=== PATIENT | female | born 1955 | race Caucasian/White ===

== ENCOUNTER 2020-10-20 12:34 | Outpatient (REF) | payer MEDICARE, SELFPAY ==
[2020-10-20 13:43] LABS: Anion Gap 14 (12-20); Carbon Dioxide 29 mmol/L (22-29); Chloride 103 mmol/L (96-108); Potassium 5.1 mmol/L (3.3-5.1); Sodium 141 mmol/L (135-145)
[2020-10-20 13:55] LABS: Valproate 43.7 mcg/mL (50.0-100.0)
== END 2020-10-20 12:35 | disposition home or self-care (01) ==
LOC: HO.LAB 12:34
PROVIDERS: PCP Family Medicine; Visit Provider Psychiatry & Neurology Neurology
DX: G40.909 Epilepsy, unspecified, not intractable, without status epilepticus (principal)
CPT/HCPCS: 36415; 80051; 80164

== ENCOUNTER 2022-04-26 11:17 | Outpatient (REF) | payer MEDICARE, SELFPAY ==
[2022-04-26 13:05] LABS: Valproate 88.1 mcg/mL (50.0-100.0)
[2022-04-26 14:18] LABS: Anion Gap 4 (12-20); Carbon Dioxide 39 mmol/L (22-29); Chloride 100 mmol/L (96-108); Potassium 4.8 mmol/L (3.3-5.1); Sodium 138 mmol/L (135-145)
== END 2022-04-26 11:18 | disposition home or self-care (01) ==
LOC: HO.LAB 11:17
PROVIDERS: Visit Provider Psychiatry & Neurology Neurology
DX: G40.909 Epilepsy, unspecified, not intractable, without status epilepticus (principal)
CPT/HCPCS: 36415; 80051; 80164

== ENCOUNTER 2023-11-07 12:24 | Outpatient (REF) | payer MEDICARE, SELFPAY ==
[2023-11-07 13:15] LABS: Anion Gap 10 (12-20); Carbon Dioxide 32 mmol/L (22-29); Chloride 103 mmol/L (96-108); Potassium 4.4 mmol/L (3.3-5.1); Sodium 141 mmol/L (135-145); Valproate 85.4 mcg/mL (50.0-100.0)
== END 2023-11-07 12:25 | disposition home or self-care (01) ==
LOC: HO.LAB 12:24
PROVIDERS: PCP Family Medicine; Visit Provider Psychiatry & Neurology Neurology
DX: E87.1 Hypo-osmolality and hyponatremia (principal); G40.909 Epilepsy, unspecified, not intractable, without status epilepticus
CPT/HCPCS: 36415; 80051; 80164

== ENCOUNTER 2024-11-12 10:50 | Outpatient (AMB) | payer MEDICARE, SELFPAY ==
--- NOTE | 2024-11-12 10:56 | A.OFFVIS_ITS ---
Intake Visit Reasons: 1 Year follow up Accompanied by: Spouse Allergies NSAIDS (Non-Steroidal Anti-Inflamma Allergy (Unknown, Verified 11/12/24 11:00) Unknown Penicillins Allergy (Unknown, Verified 11/12/24 11:00) Unknown vaccine adjuvant system, AS01B lipo (From Shingrix (PF)) Allergy (Unknown, Ve rified 11/12/24 11:00) Unknown varicella-zoster virus glycoprotein (From Shingrix (PF)) Allergy (Unknown, Verified 11/12/24 11:00) Unknown Medication List - Last Reconciled 11/12/24 by Leyla Coyle CNP calcium carbonate-vitamin D3 250 mg-3.125 mcg (125 unit) 1 tab PO DAILY cyanocobalamin (vitamin B-12) (Vitamin B-12) 1,000 mcg PO DAILY divalproex (Depakote) 500 mg PO BID ergocalciferol (vitamin D2) (Vitamin D2) 1,250 mcg PO QWEEK insulin lispro 50 units subcut DAILY levothyroxine 88 mcg PO QAM pregabalin 50 mg PO BID HPI Comments Details: She has been stable with Depakote 500mg twice a day. No seizure recurrence since 04/2012. No dizziness. No signficant tremors. Walking with walker outside of home and using cane or walker at home, few minor falls. No change in left foot drop. Using AFO brace most of the time, but forgot it today. Pregabalin helping with pain. Tried a SC stimulator in the past, but it did not help. She had some forgetfulness and had MRI done at [facility] which apparently showed some shrinkage. She also apparently had some neuropsych testing done in [place] and had appointment later this month. She has a long history of seizure disorder with partial seizures and secondary generalization. She had cervical discectomy and implant in 02/2023 and another lumbar disc surgery in 03/2023. No problems with tremors any more. Type 1 diabetes on insulin pump. Has thyroid problems. In the past she has had problems with mental status changes, mood changes, and was toxic on Depakote with a level of 179 that was slowly brought down. She is now on 500 mg Depakote twice a day. Had lumbar discectomy at L5-S1 by Dr. Humphreys on 07/13/2017 and has a left foot drop. 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 She had also had it before and needed L4-5 discectomy at [facility] in 04/2012. [facility] Medical History (Updated 11/12/24 @ 11:18 by Leyla Coyle CNP) Hyponatremia Tremor, unspecified Seizure disorder Radiculopathy, lumbar region Review of Systems Const Denies chills, Denies daytime sleepiness, Denies difficulty sleeping, Denies fatigue, Denies fever(s), Denies frequent falls, Denies headache(s), Denies increased appetite, Denies poor appetite, Denies snoring, Denies weakness, Denies weight gain and Denies weight loss Eyes Denies loss of vision ENT Denies vertigo, Denies dizziness, Denies headache(s) and Denies neck pain Card Denies chest pain at rest, Denies chest pain with activity, Denies syncope, Denies leg edema, Denies palpitations, Denies dyspnea and Denies dyspnea on exertion Resp Denies cough, Denies dyspnea, Denies dyspnea on exertion and Denies snoring GI Denies abdominal pain, Denies constipation, Denies heartburn, Denies diarrhea and Denies nausea Denies urinary frequency, Denies urinary incontinence and Denies urinary urgency Musc Denies abnormal gait, Reports back pain, Denies myalgias, Denies arthralgias, Denies neck pain, Denies numbness and Denies tingling Neuro Denies abnormal gait, Denies vertigo, Denies dizziness, Denies syncope, Denies frequent falls, Denies headache(s), Denies lack of coordination, Denies loss of vision, Denies memory loss, Denies numbness, Denies Other visual disturbances, Denies restless legs, Denies seizure-like activity, Denies tingling, Denies paresthesias, Denies tremor(s) and Denies weakness Psych Denies anxiety, Denies depression, Denies auditory hallucinations, Denies memory loss and Denies visual hallucinations Endo Denies fatigue and Denies palpitations Physical Exam Const Other: General Appearance:? normal, in no acute distress. Heart:? S1, S2 normal, no murmurs. Lungs:? clear anteriorly and posteriorly. Musculoskeletal:? normal. Extremities:? no edema. Psych:? alert, oriented, cognitive function intact, cooperative with exam. Neuro Other: Abnormal Neurological Findings:?Walking with walker. Left foot drop with weak TA and evertors of ankle. Mental Status: alert and oriented X 3. Normal attention, orientation, memory, and affect. Cranial Nerves: Pupils are equal, round, and reactive to light. External ocular muscles are intact. Visual adan are full, no ptosis. Face is symmetrical, no facial weakness or droop. Facial sensations are normal. Tongue protrudes in midline. Palate elevates symmetrically. Shoulder shrugging is normal Motor Examination: As above. DTR 2+, 1+ AJs. Plantars are flexor. Sensory Exam: Normal light touch, temperature, pinprick, vibration, and joint- position sensations. Rhomberg sign is absent. Coordination: No ataxia. No titubation. [id number], [id number] test, and rapid alternating movements were normal. Gait Exam: With walker. Cerebellar Signs: [id number] is okay. Extrapyramidal System: No tremor, rigidity with normal facial expressions. No bradykinesia. No bradyphrenia. Normal arm swing and posture. No propulsion or retropulsion. Speech: Normal. Results Reviewed Results Reviewed: Laboratory Tests 11/07/23 12:35 Sodium 141 Potassium 4.4 Chloride 103 Carbon Dioxide 32 H Anion Gap 10 L Valproic Acid 85.4 Assessment & Plan Assessment & Plan (1) Seizure disorder: Code(s): G40.909 - Epilepsy, unspecified, not intractable, without status epilepticus Category: Medical Plan: Continue Depakote 500mg 1 tablet twice a day. Valproate level ordered. Lab results from last appointment reviewed. (2) Tremor, unspecified: Code(s): R25.1 - Tremor, unspecified Category: Medical Plan: No tremor noted on exam. (3) Radiculopathy, lumbar region: Code(s): M54.16 - Radiculopathy, lumbar region Category: Medical Plan: . (4) MCI (mild cognitive impairment): Code(s): G31.84 - Mild cognitive impairment of uncertain or unknown etiology Category: Medical Plan: Will request MRI report from [facility]. She will ask for copy of neuropsych testing report to be sent to the office. Stay physically and socially active, use walker and AFO brace. Orders: Orders Valproate Today G40.909 - Epilepsy, unspecified, not intractable, without status epilepticus Coding Level of Care Code Est Pt Level 4 (32215) Diagnoses Seizure disorder G40.909 Tremor, unspecified R25.1 Radiculopathy, lumbar region M54.16 MCI (mild cognitive impairment) G31.84
--- OUTSIDE RECORDS SUMMARY | 2024-11-12 11:36 | XMS_ITS | Clinical Summary ---
Author Organization [facility] Address [address] [place] [address] [place] [id number] Phone Care Team Providers Care Animal Shelter Clerk Name Role Phone Reina Price RN Unavailable [phone] Bryce Plunkett MD Unavailable Bryce Plunkett MD Primary Care Provider [phone] Allergies Active Allergy Reactions Criticality Noted Date Comments Insulin Detemir Other (See Comments) Medium 03/03/2017 Skin reaction Msg Angioedema High 06/08/2017 Insulin Aspart Other (See Comments) Medium 03/03/2017 Skin reaction Nsaids (Non-Steroidal Anti-Inflammatory Drug) Hives Medium 03/03/2017 Penicillins Hives Medium 03/03/2017 Shellfish Containing Products Hives 02/05/2024 Other Reaction(s): CLAMS AND MSG- REACTION NOT LISTED Medications divalproex (DEPAKOTE ER) 500 MG ER 24 hr tablet Take 500 mg by mouth 2 (two) times a day. Active acetaminophen (TYLENOL) 325 mg tablet Take 2 tablets (650 mg total) by mouth every 6 (six) hours as needed for mild pain or fever. 0 05/22/19 19 Active BASAGLAR KWIKPEN U-100 INSULIN 100 unit/mL (3 mL) InPn injection penIndications:Ty pe 1 diabetes mellitus without complication Inject 18 Units under the skin daily. E10.9 15 mL 1 04/19/19 24 Active BD ULTRA-FINE JIMI PEN NEEDLE 32 gauge x 5/32 NdleIndications:T ype 1 diabetes mellitus without complication 1 each by Miscellaneous route as needed. E10.9 30 each 1 04/19/19 24 Active OMNIPOD DASH INTRO KIT, GEN 4, CrtgIndications:T ype 1 diabetes mellitus without complication Used to start initiation for Omnipod dash PODS 1 each 05/26/19 24 Active GVOKE HYPOPEN 2-PACK 1 mg/0.2 mL subcutaneous auto-injectorIndi cations:Type 1 diabetes mellitus without complication INJECT 0.2 ML (1MG) UNDER THE SKIN ONCE NEEDED FOR SEVERE HYPOGLYCEMIA CASES 0.4 mL 3 07/26/19 24 Active blood-glucose meter kitIndications:Ty pe 1 diabetes mellitus without complication,Insu john pump in place FREESTYLE METER KIT for use with Freestyle test strips. Use as instructed to monitor blood sugars 1-2 times daily. E10.9 1 each 08/02/19 24 Active EPINEPHrine 0.3 mg/0.3 mL auto-injectorIndi cations:Medicatio n refill INJECT INTRAMUSCULARLY ONCE NEEDED 2 each 1 08/08/19 24 Active OMNIPOD DASH PODS, GEN 4, CrtgIndications:T ype 1 diabetes mellitus without complication USE 1 DIRECTED UNDER THE SKIN EVERY OTHER DAY. 45 each 3 12/25/19 24 Active DEXCOM G6 SENSOR DeviIndications:T ype 1 diabetes mellitus without complication 1 each by Miscellaneous route Every 10 Days. 9 each 3 12/26/19 24 Active calcium carbonate-vitamin D3 625 mg (250 elemental)-125 units TabIndications:Ty pe 1 diabetes mellitus without complication Take 1 tablet by mouth daily. 90 tablet 3 03/21/20 24 Active insulin syringe-needle U-100 0.3 mL 31 gauge x 15/64 SyrgIndications:T ype 1 diabetes mellitus without complication 1 each by Miscellaneous route 3 (three) times a day before meals. For use with meal time insulin in case of insulin pump failure E10.9 100 each 3 03/30/20 24 Active CONTOUR NEXT Strp stripsIndications :Type 1 diabetes mellitus without complication,Insu john pump in place Monitor blood sugars as directed up to 6 times daily DX:E10.9 600 strip 1 04/07/20 24 Active levothyroxine (SYNTHROID, LEVOTHROID) 88 MCG tabletIndications :Acquired hypothyroidism Take 1 tablet (88 mcg total) by mouth every morning. 90 tablet 3 04/26/19 25 Active capsaicin (ZOSTRIX-HP) 0.075 % topical cream Apply topically 3 (three) times a day. 57 g 1 08/31/19 25 Active insulin lispro (HUMALOG U-100 INSULIN) 100 unit/mL injection vialIndications:T ype 1 diabetes mellitus with hyperglycemia INJECT 50 UNITS SUBCUTANEOUSLY DAILY VIA PUMP 50 mL 3 10/19/19 25 Active ergocalciferol (DRISDOL) 50,000 unit capsuleIndication s:Vitamin D deficiency Take 1 capsule (50,000 Units total) by mouth once a week. 12 capsule 10/26/19 25 Active pregabalin (LYRICA) 50 MG capsuleIndication s:Diabetic mononeuropathy associated with type 2 diabetes mellitus Take 1 capsule (50 mg total) by mouth 2 (two) times a day. 56 capsule 5 11/01/19 25 Active cyanocobalamin, vitamin B-12, (VITAMIN B-12) 1000 MCG tabletIndications :Vitamin B12 deficiency Take 1 tablet (1,000 mcg total) by mouth daily. 30 tablet 5 11/01/19 25 Active insulin lispro (HUMALOG U-100 INSULIN) 100 unit/mL injection vialIndications:T ype 1 diabetes mellitus with hyperglycemia INJECT 50 UNITS SUBCUTANEOUSLY DAILY VIA PUMP 50 mL 3 10/03/19 24 2024 Disconti nued(Reo rder) pregabalin (LYRICA) 25 MG capsuleIndication s:Diabetic mononeuropathy associated with type 2 diabetes mellitus Take 1 capsule (25 mg total) by mouth 2 (two) times a day. 56 capsule 2 09/20/19 25 2024 Disconti nued(Reo rder) Active Problems Patient Care Coordination No te Formatting of this note migh t be different from the original. Patient is high risk for these reasons: Multiple chronic conditions Living Situation: Lives with spouse in one story home, 4 steps to enter Functional Status (ADL's/iADLs): Independent with ADL's, some assistance with iADL's Family/Social Supports: Family Goals of Care (HCP/Molst): HCP on file Community Supports (e.g. VNA, DME Vendors, Elder Services): N/A Transportation: drives self locally, spouse drives longer distance Medication Management System/Specialized Pharmacy Needs: Delivered by mail, self managed Financial Concerns: N/A Other Supports and Care Needs: N/A Problem Noted Date Diagnosed Date Vitamin D deficiency 10/25/2024 Assessment & Plan (10/25/2024 10:06 AM EDT): She takes vitamin D 5000 units daily and she states that she prepares her own pills and takes this medication without fail. Yet her vitamin D level was low at 22 ng/mL so I would think that she probably has some type of absorption issue. I will prescribe ergocalciferol 50,000 units weekly currently she is taking 35,000 units weekly. I asked her to stop the 5000 units and take 50,000 ergocalciferol weekly and repeat vitamin D levels in 3 months time. 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 But based on her CTX this is not elevated so surprising to me. In any case vitamin B6 and B12 could be deficient in homocystinemia so I will check these levels. Other osteoporosis without current pathological fracture 07/03/2024 Assessment & Plan (10/25/2024 10:15 AM EDT): On biochemical workup I found that she is vitamin D deficient despite taking high doses of vitamin D 5000 units daily. This will be 35,000 units a week so she is really taking this then is possibly a malabsorption issue because vitamin D levels are still low. If vitamin D levels are low she cannot absorb calcium properly which is required for bone buildup. Furthermore 24 urine calcium output was low but I think because of incontinence this is not an accurate collection. The calcium carbonate that she takes only gives her 250 mg of elemental calcium. I told her to take calcium citrate and I recommended the brand Citracal max which is 2 tablets for 650 mg and she probably should take this in divided doses unless she is forgetful in which case she should take both at the same time. However I explained that taking calcium in divided doses with food is best for absorption. We also found that she has homocystinemia which can also result in progression of osteoporosis. Interestingly though the CTX was not elevated in the procollagen was on the low side of normal as if she will build in bone. She is past due for repeat DXA scan and I requested DXA scan studies and asked the patient's to call radiology to schedule this because they are 1 year behind. At this point if she is not getting adequate calcium intake and vitamin D there is no point in prescribing an antiresorptive medication because the medication will not work so we need to bring up the vitamin D and calcium intake before we prescribe antiresorptive medications. She would definitely benefit from antiresorptive medication because she is at high risk of hip fracture based on the FRAX score. Today I reviewed antiresorptive medications which I think she will benefit from alendronate, zoledronic acid or denosumab. I explained how these medications are taken. I will also give other information to read again today. However again I am not prescribing this medication because is not going to be beneficial onto her vitamin D levels are in the normal reference range and she is taking adequate calcium intake. She will return for follow-up in 3 months time. Assessment & Plan (07/03/2024 12:10 PM EDT): This is a patient that was diagnosed with osteoporosis on 2020 possibly earlier but I do not have the initial DXA scans. Her risk factors for osteoporosis include age, menopause, use of antiepileptic medications, use of corticosteroids on 2 occasions, remote tobacco use. She has had 2 inches decrease in height no fractures. Presently is taking calcium and vitamin D supplements. At this point I will do biochemical workup for evaluation of secondary causes of osteoporosis. I will provide the patient with information on osteoporosis management and medications that she can use. Based on guidelines she is at very high risk of osteoporotic fracture and would benefit from antiresorptive medications to increase bone mineral density. I will not be prescribing any medications today she should read over the information and decide which medication she wants to use. I have done a brief explanation of these medications. Cervical radiculopathy 03/20/2023 Assessment & Plan (03/23/2023 12:19 AM EST): Patient continues to have pain in the left shoulder which is radiating down to her elbow and fingers. She is already tried physical therapy and the gabapentin is not providing her relief. I will order an MRI of the cervical spine to look for underlying cause of the symptoms. Delirium 02/23/2023 Assessment & Plan (02/27/2023 9:29 AM EST): Confusion resolved. Etiology of patient's confusion seemed most likely attributed to her gabapentin increase to 600 mg 3 times daily, several weeks prior to arrival, as this correlated with her change in mental status. Hyperglycemic on arrival, not in DKA, no hypoglycemia. IV fluid resuscitation initiated in the ED. Urinalysis appeared noninfectious, despite imaging findings. Chest x-ray did not reveal any acute pathology. Toxicology screen, alcohol negative. She was diagnosed with a T12 compression fracture on imaging in the ED, with narcotics given for pain management cautiously in the setting of underlying delirium. 02/27: -At the time of admission gabapentin dose was reduced to 200 mg twice daily. -Healthcare proxy is invoked. Will reassess need today. Mental status now clear. -Pain management: Continuing to minimize opioids as tolerated, ensuring adequate pain control. Tylenol is scheduled with lidocaine patch. -Dealing with constipation, secondary to opioids, bowel regimen increased 02/26. MiraLAX scheduled twice daily, Colace twice daily, senna nightly, Dulcolax suppository daily if no response to oral medications. -IV fluids restarted today while n.p.o. -Antiemetics available if needed -Low suspicion for infection, UA reassuring, white blood cell count normalized, no fevers. Lactate blood increase 02/23/2023 Assessment & Plan (02/26/2023 9:10 AM EST): On arrival patient had elevated lactate at 3, trending down to 2.35 with rehydration. Initially with a mild leukocytosis of 11, low-grade temp of 99.4 which has since normalized. Currently has no signs of infection, CT mentions possible enteritis and she does complain of some mild abdominal pain though nontender on exam and reports she has not reported this prior, no episodes of diarrhea. Elevated lactate likely secondary to dehydration given hyperglycemia leading to diuresis, likely insufficient amount of insulin prior to arrival as well, leading to anabolic metabolism and elevated lactate. Abdominal pain is likely secondary to elevated glucose levels, now resolved. No diarrhea. Cervical spinal stenosis 02/23/2023 Assessment & Plan (02/23/2023 5:14 PM EST): Patient has had ongoing neck, shoulder, left arm pain for which she followed up with her PCP who had MRI performed on 02/19 which showed multilevel neuroforaminal narrowing, fairly severe C5-C6 on the right and C6-C7 on the left. Mild central canal stenosis at C5-C6. Moderate to severe degenerative disc and endplate changes at C5-C6 and C6-C7. Sensation, strength intact not requiring any emergent intervention. -Follow-up with Dr. Ramirez of [facility] who PCP is referring to for steroid injections or surgical intervention -Continue with gabapentin, at reduced dose -Lidocaine patch to shoulder Snoring 08/30/2022 Assessment & Plan (08/30/2022 11:37 AM EDT): Referral has been placed to ENT to work-up possible causes of snoring. Patient does not have congestion on physical exam and there is no discharge from nose seen. Pain in joint of left shoulder 08/30/2022 Assessment & Plan (12/26/2022 1:45 AM EDT): Patient continues to go to physical therapy and is noticing an improvement in her overall symptoms. She recently went on a camping trip and was able to do more as compared to her last visit in August Assessment & Plan (08/30/2022 11:38 AM EDT): I advised the patient to start physical therapy for her pain management back and left shoulder as it appears to be a muscular issue. She is living in [place] and would like to go to the [facility] physical therapist located at [place]. Change in color of skin mole 08/30/2022 Assessment & Plan (08/30/2022 11:38 AM EDT): I have placed a referral for patient to follow-up with dermatology to get the suspicious lesion biopsied over the left side of her chest. Seborrheic keratoses 06/23/2021 Assessment & Plan (06/23/2021 2:04 PM EDT): Endy has numerous lesions and she is reassured. No specific treatment needed at this point. 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 Referral to physical therapy. Assessment & Plan (02/24/2021 1:57 PM EST): Endy is having both biceps tendinitis as well as triceps tendinitis. Is been going on for at least a couple of months. We did review options. She does not tolerate NSAIDs but is using acetaminophen. Steroids would likely worsen her sugar. Time I think will help and physical therapy as an option. Right now she is managing. Type 1 diabetes mellitus with hyperglycemia 04/10 Assessment & Plan (08/05/2024 1:16 PM EDT): Endy has been doing well in general, continues to take insulin doses prior to eating consistently, these however have not been effective early in the day, there has overall been more variability in her patterns and with this more alerts for highs and lows We reviewed alert settings today which are appropriate We reviewed CGM data which indicates high CV indicating wider variability than in the past We discussed optimizing I:C ratio for breakfast/lunch and also reducing basal rate, which is quite high, during the day; these changes will hopefully bring about some balance in glucose patterns and reduce alerts above/below goal We had a lengthy discussion regarding steroid therapy and the benefits of this on improving functional status, sleep quality, pain control and how this needs to be evaluated with respect to the known side effects of hyperglycemia and increased insulin resistance Endy is UTD with eye and foot care Blood pressure is well controlled Endy and her are advised to contact us with any questions or concerns, she will return in 3 months for visit with Amirah Choi and in 6 months with [facility] Assessment & Plan (12/26/2022 1:44 AM EDT): Patient is following up with the diabetes center. She does have an insulin pump and the diabetes center is managing the refills on her insulin. Assessment & Plan (06/23/2021 2:05 PM EDT): She is being followed by the diabetic center. She does have a insulin pump in place. Assessment & Plan (02/24/2021 1:56 PM EST): She is scheduled to see endocrinology. We will check labs. Mixed stress and urge urinary incontinence 10/29 Assessment & Plan (06/23/2021 2:07 PM EDT): Endy is really bothered by the symptoms. She has significant incontinence at night and spite of wearing depends. I reviewed with her the importance of starting Kegel exercises even though this may not be adequate. She is referred to Dr. Hare. Degenerative lumbar disc 07/12/2017 Assessment & Plan (06/23/2021 2:05 PM EDT): She continues to have difficulty ambulating and pain but she is managing. No new medication. Herniated nucleus pulposus, lumbar 07/11/2017 Acute left-sided low back pain with sciatica 04/2017 Assessment & Plan (02/27/2023 9:32 AM EST): Patient is found to have T12 acute compression fracture, following lifting a load of laundry when she heard a pop on Monday. She reported her pain is in the center of her spine, sometimes moves down the left side of the lower back. She has history of left foot drop. No urine or bladder incontinence, sensation intact in lower extremities. 02/27: IR consulted for kyphoplasty planned for today. Case reviewed and Dr. Gonzalez agrees, stat MRI requested prior to the procedure. Holding Lovenox prior to her procedure, SCDs ordered for DVT prophylaxis. N.p.o. at midnight 02/27. -Tylenol scheduled 975 mg every 8 hours with scheduled lidocaine patch, in addition to as needed oxycodone 2.5 to 5 mg for moderate pain for 6 hours, and IV morphine 1 mg every 3 hours as needed severe pain. -Calcium/vitamin D supplements, calcitonin nasal spray -Heat therapy -PT/OT Assessment & Plan (07/11/2017 5:26 PM EDT): S/p left L5-S1 discectomy Plan: -Continue per Dr. Humphreys Assessment & Plan (06/08/2017 5:10 PM EST): Endy was diagnosed with left lower back pain with sciatica down her left leg. She was advised to stick with the prednisone. She was advised against another refill of the oxycodone. She was advised to use heat. To go for the image study, to start on the exercises given today and to go for PT. She was informed that this will gradually improve and she was advised to call if this does not. She understands and agrees. Family history of breast cancer 05/07/2017 Overview (08/01/2018): Sister - breast cancer age 53 Another sister - uterine cancer - surgery at [facility] 2 other sisters (without cancer) Mother - no cancer Father - smoker, lung cancer Second cousin (maternal) with breast cancer twice, first at age 35 Assessment & Plan (11/03/2020 5:40 PM EDT): Endy will have mammogram and plan is to continue yearly clinical breast exam and mammogram. Assessment & Plan (05/06/2019 11:38 AM EST): We discussed family history of breast cancer. Endy will continue with annual mammograms and will also likely opt for annual clinical breast/pelvic exams as a precaution. Lumbar radiculopathy 05/07/2017 Assessment & Plan (03/23/2023 12:19 AM EST): Patient continues to have pain down her lower back and legs. She is requesting a refill on the gabapentin and I will send the medication to her preferred pharmacy. Assessment & Plan (08/30/2022 11:37 AM EDT): Patient requested that her gabapentin be sent into [facility] with refills. She would like 90 days at a time and does not want to call the office back in less than a year to get her prescriptions. Acquired hypothyroidism 03/03/2017 Assessment & Plan (08/05/2024 1:08 PM EDT): Most recent TSH was reviewed, this was elevated Continues on LT4 daily Reports some issues with decreased energy, cold intolerance, weight has been stable, no stool pattern abnormality reported Repeat TFTs ordered Assessment & Plan (02/05/2024 5:49 PM EDT): Most recent TSH was reviewed, this was in desired range Continues on LT4 Clinically euthyroid Assessment & Plan (08/02/2023 12:50 PM EDT): Most recent TSH was reviewed, this was in desired range Continues on LT4 Clinically euthyroid Assessment & Plan (02/24/2023 11:40 AM EST): Continue home levothyroxine. TSH WNL. Assessment & Plan (01/24/2023 11:49 AM EDT): Most recent TSH was reviewed, this was just above target though in reassuring range Continues on LT4 Assessment & Plan (07/19/2022 12:30 PM EDT): Had LT4 dosage adjusted due to low TSH, most recent is just above target though in reassuring range Assessment & Plan (02/21/2022 3:39 PM EST): Had LT4 dosage adjusted due to low TSH Routine TSH follow up ordered today, Endy is encouraged to get this done today Assessment & Plan (01/17/2022 12:57 PM EDT): Had LT4 dosage adjusted due to low TSH Reminded that she has repeat TSH on file and to have this done soon to ensure current dose is appropriate Assessment & Plan (11/24/2021 1:04 PM EDT): Most recent TSH reviewed TSH suppressed, recent reduction in LT4 therapy Assessment & Plan (07/16/2021 1:24 PM EDT): Most recent TSH reviewed Continues on LT4 therapy Assessment & Plan (06/23/2021 2:04 PM EDT): Clinically she appears euthyroid. Assessment & Plan (03/01/2021 11:44 AM EST): Most recent TSH reviewed Continues on LT4 therapy Assessment & Plan (02/24/2021 1:56 PM EST): Clinically euthyroid. Continue medication. Assessment & Plan (08/27/2020 1:18 PM EDT): Most recent TSH reviewed Continues on LT4 therapy Assessment & Plan (09/12/2019 1:45 PM EDT): Most recent TSH reviewed Continues on LT4 therapy Assessment & Plan (05/20/2018 9:43 PM EST): Continue her outpatient dosing of levothyroxine Assessment & Plan (03/09/2017 8:59 PM EST): Endy is overdue for routine thyroid monitoring, she is clinically euthyroid and her exam is normal, she is consistent with her L-thyroxine dosing Insulin pump in place 03/03/2017 Assessment & Plan (10/08/2024 9:34 PM EDT): History of type 1 diabetes with insulin pump in place. - Continue with low-dose insulin sliding scale with [id number] testing - Continue Lyrica twice daily for peripheral neuropathy. - 10/07 plan was to continue her pump with the nurses checking [id number]'s however after the hypoglycemic event new plan is to stop her pump and give basal bolus insulin but waiting to confirm her regular basal rates to estimate her insulin need here - 10/08 blood sugars better Assessment & Plan (10/07/2024 4:59 PM EDT): History of type 1 diabetes with insulin pump in place. - Continue with low-dose insulin sliding scale with [id number] testing - Continue Lyrica twice daily for peripheral neuropathy. - 10/07 plan was to continue her pump with the nurses checking [id number] however after the hypoglycemic event new plan is to stop her pump and give basal bolus insulin but waiting to confirm her regular basal rates to estimate her insulin need here Assessment & Plan (10/07/2024 5:07 AM EDT): History of type 1 diabetes with insulin pump in place. - Continue insulin pump for now and will confirm with in the morning regarding insulin pump rate -Continue with low-dose insulin sliding scale with [id number] testing - Continue Lyrica twice daily for peripheral neuropathy. Assessment & Plan (08/05/2024 1:12 PM EDT): New BASAL 1 insulin pump settings Time Basal Rates? Time ICR Time ISF Time Target IOB 12am 0.35u/hr 12am 4 12am 50 12am 120mg/dl 4hrs 3am 0.55 5pm 5 8am 0.80 6pm 0.45 10pm 0.30 total 14.2u/day We adjusted insulin pump settings to improve overall stability of glucose patterns, lower basal rate during the day and more appropriate carb ratio based on prandial spikes early in the day, are likely to help reduce variability and improve overall control In case Endy does get additional steroid injections, we discussed the pros and cons of these in detail, she does have a steroid basal pattern which is likely to continue to be effective for her STEROID insulin pump settings (to be activated this on the day of your steroid injection) Time Basal Rates? Time ICR Time ISF Time Target IOB 12am 0.45u/hr 12am 6 12am 50 12am 120mg/dl 4hrs 3am 0.80 8am 1.30 6pm 0.6 10pm 0.6 total 21.95u/day Encouraged to contact me with any questions or concerns, we will follow up in 6 months, Endy will return to meet with Amirah Choi in 3 months Assessment & Plan (02/05/2024 5:55 PM EDT): New BASAL 1 insulin pump settings Time Basal Rates? 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 overnight patterns, midnight rate may also need to be adjusted but we will monitor this CGM data indicates good overall contro however more variable than in the past, time in range was optimal previously but this has fallen to <50%, overnight patterns are trending a little higher we addressed this today Endy continues to monitor for hypoglycemia and manages this well/appropriately when it occurs Documented rate of hypoglycemia continues to be very low overall We discussed considerations for insulin pump management after steroid injection should Endy require this, we set up a new basal pattern as follows and Endy is advised to also overestimate her carb counts at meals by 50% more and should continue these changes for at least 5 days and knows that she may need to continue this longer depending on need, steroid injection last time caused elevation in glucose for 2 weeks STEROID insulin pump settings (activate this on the day of your steroid injection) Time Basal Rates? Time ICR Time ISF Time Target IOB 12am 0.45u/hr 12am 6 12am 50 12am 120mg/dl 4hrs 3am 0.80 8am 1.30 6pm 0.6 10pm 0.6 total 21.95u/day Encouraged to contact me with any questions or concerns, we will follow up in 6 months, Endy will return to meet with Amirah Choi in 3 months Assessment & Plan (08/02/2023 12:52 PM EDT): Current insulin pump setting Time Basal Rates? Time ICR Time ISF Time Target IOB 12am 0.40u/hr 12am 6 12am 50 12am 120mg/dl 4hrs 3am 0.70 8am 1.05 6pm 0.45 total 17.9u/day We did not adjust insulin pump settings today CGM data indicates very good overall control in the recent past, this is in fact improved compared to past data, time in range is now at optimal goal of >70%, there is continues to be less overall hyperglycemia and overnight patterns continue to be stable and less variable night to night than in the past Endy continues to monitor for hypoglycemia and manages this well/appropriately when it occurs Documented rate of hypoglycemia continues to be very low overall We set up the Omnipod Dash PDM today, discussed the differences between her current PDM and the Dash PDM Encouraged to contact me with any questions or concerns, we will follow up in 6 months, Endy will return to meet with Michelle Polanco in 3 months Assessment & Plan (04/07/2023 12:23 PM EST): Current insulin pump setting Time Basal Rates? Time ICR Time ISF Time Target IOB 12am 0.40u/hr 12am 6 12am 50 12am 120mg/dl 4hrs 3am 0.70 8am 1.05 6pm 0.45 total 17.9u/day We did not adjust insulin pump settings today, encouraged Endy to only enter carbs that she is eating, if hypoglycemia continues then bolus settings will need to be adjusted Discussed omnipod classic is being discontinued, Endy will need to upgrade to a different OP model, briefly discussed DASH or Omnipod 5 to upgrade to, Endy will consider this and will discuss in further detail with Michelle at upcoming appt Encouraged to contact me with any questions or concerns Assessment & Plan (02/27/2023 9:34 AM EST): Patient has history of type 1 diabetes, uses insulin pump. At the time of admission pump malfunction was reported, with stating that the insulin pump was loaded incorrectly. On arrival she was hyperglycemic but without anion gap or acidosis. She was given a one-time dose of insulin in the ED. Inpatient basal bolus insulin, glucose now well controlled. 02/27: -Continued on nightly Lantus 15 units nightly. This was given on the night of 02/26 despite being n.p.o. at midnight. Glucose stable this morning 124-130, will monitor closely. -Additional Humalog sliding scale with meals and nightly. -Diabetic diet. -Glucose monitoring with meals and nightly. -A1c 7.9% Assessment & Plan (01/24/2023 11:51 AM EDT): Current insulin pump setting Time Basal Rates? Time ICR Time ISF Time Target IOB 12am 0.40u/hr 12am 6 12am 50 12am 120mg/dl 4hrs 3am 0.70 8am 1.05 6pm 0.45 total 17.9u/day We did not adjust insulin pump settings today CGM data indicates good overall control in the recent past, time in range is at goal of >50% and near optimal goal of >70%, there is continues to be less overall hyperglycemia and overnight patterns are stable though variable night to night likely related to evening snack Endy continues to monitor for hypoglycemia and manages this well/appropriately when it occurs Documented rate of hypoglycemia continues to be very low overall Encouraged to contact me with any questions or concerns, we will follow up in 6 months, Endy will return to meet with Michelle Polanco in 3 months Assessment & Plan (07/19/2022 12:33 PM EDT): Current insulin pump setting Time Basal Rates? Time ICR Time ISF Time Target IOB 12am 0.40u/hr 12am 6 12am 50 12am 120mg/dl 4hrs 3am 0.70 8am 1.05 6pm 0.45 total 17.9u/day We adjusted basal rate at 3am as noted in bold CGM data indicates good overall control in the recent past, time in range is near goal with less overall hyperglycemia however there is concern about some consistent drift into low normal range in the overnight period at times Endy continues to monitor for hypoglycemia and manages this well when it occurs Documented rate of hypoglycemia continues to be very low overall Encouraged to contact me with any questions or concerns, we will follow up in 6 months, Endy will return to meet with our chemical educator staff in 3 months Assessment & Plan (02/21/2022 3:43 PM EST): Current insulin pump setting Time Basal Rates? Time ICR Time ISF Time Target IOB 12am 0.40u/hr 12am 6 12am 50 12am 120mg/dl 4hrs 3am 0.80 8am 1.05 6pm 0.45 total 18.4u/day We did not adjust insulin pump settings today, new PDM has been set up for Endy today CGM data indicates good overall control in the recent past, meeting goal time in range with less overnight hyperglycemia however concerned about some drops into low normal to low range in middle of the night at times, she continues to manage these well, Endy is happy with her current insulin pump settings Documented rate of hypoglycemia continues to be very low overall Encouraged to contact me with any questions or concerns, we will follow up in 6 months, Endy will return to meet with our chemical educator staff in 3 months Assessment & Plan (01/17/2022 1:01 PM EDT): Current insulin pump setting Time Basal Rates? Time ICR Time ISF Time Target IOB 12am 0.40u/hr 12am 6 12am 50 12am 120mg/dl 4hrs 3am 0.80 8am 1.05 6pm 0.45 total 18.4u/day We did not adjust insulin pump settings today CGM data indicates good overall control in the recent past, meeting goal time in range with less overnight hyperglycemia however concerned about some drops into low normal to low range in middle of the night at times, we reviewed this today and discussed strategies to prevent this and also importance of assessing changes in routine which may make hypoglycemia more likely, Endy is made aware that though reduced basal rate would help to prevent these episodes, these are infrequent and the biggest effect would be on higher overall patterns on other nights Documented rate of hypoglycemia continues to be very low overall We revisited Omnipod Dash and Omnipod 5, Endy is having issues with her current Lorenzo PDM but would prefer to stay with this version of Omnipod, she likes having her PDM as a meter, advised to troubleshoot current issues with Omnipod customer support and to let them know that she would prefer to stay with Lorenzo Encouraged to contact me with any questions or concerns, we will follow up in 6 months, Endy will return to meet with our chemical educator staff in 3 months Assessment & Plan (11/24/2021 1:06 PM EDT): Current insulin pump setting Time Basal Rates? Time ICR Time ISF Time Target IOB 12am 0.4u/hr 12am 6 12am 50 12am 120mg/dl 4hrs 3am 0.8 8am 1.05 6pm 0.45 total 18.4u/day We did not adjust insulin pump settings today CGM data indicates good overall control in the recent past, meeting goal time in range with less overnight hyperglycemia when compared to last visit Documented rate of hypoglycemia continues to be very low, encouraged to continue to keep an eye on any patterns that may be concerning We reviewed Omnipod 5 that recently went into the full release stage of production which automates some pump function in the background allowing Endy not to have to run high since it would adjust insulin delivery higher or lower in order to maintain target which can be set at a conservative setting for Endy Encouraged to contact me with any questions or concerns Assessment & Plan (07/16/2021 1:28 PM EDT): Current insulin pump setting Time Basal Rates? Time ICR Time ISF Time Target IOB 12am 0.4u/hr 12am 6 12am 50 12am 120mg/dl 4hrs 3am 0.8 8am 1.05 6pm 0.45 total 18.4u/day We did not adjust insulin pump settings today CGM data indicates good overall control in the recent past, continues to run higher overnight as a matter of comfort/safety Documented rate of hypoglycemia continues to be very low, encouraged to continue to keep an eye on any patterns that may be concerning We reviewed upcoming Omnipod update soon to be released which would automate some pump function in the background allowing Endy not to have to run high since it would adjust insulin delivery higher or lower in order to maintain target which can be set at a conservative setting for Endy Encouraged to contact me with any questions or concerns Assessment & Plan (03/01/2021 11:43 AM EST): Current insulin pump setting Time Basal Rates? Time ICR Time ISF Time Target IOB 12am 0.4u/hr 12am 6 12am 50 12am 120mg/dl 4hrs 3am 0.8 8am 1.05 6pm 0.45 total 18.4u/day We did not adjust insulin pump settings today Endy is reassured that her documented rate of hypoglycemia is very low however to keep an eye on any patterns of defensive eating that she may be doing to prevent lows from happening, this would make her CGM patterns appear more in range however if she is feeling that she is working hard to prevent lows from happening then this too may require an insulin infusion rate adjustment We will be in touch with Endy to see how she is doing in 2 weeks and she is advised to call with any questions or concerns in the interim Assessment & Plan (08/27/2020 11:09 AM EDT): New insulin pump setting Time Basal Rates? Time ICR Time ISF Time Target IOB 12am 0.4u/hr 12am 6 12am 50 12am 120mg/dl 4hrs 3a 0.8 1130am 6 8a 1.05 6p 0.45 total 18.4u/day We adjusted the late day I:C ratio to help reduce risk for low blood sugars in the overnight period Endy is made aware that this may lead to higher blood sugar readings overnight and to let us know if this occurs Assessment & Plan (03/17/2020 10:24 AM EST): Current insulin pump setting Time Basal Rates? Time ICR Time ISF Time Target IOB 12am 0.4u/hr 12am 6 12am 50 12am 120mg/dl 4hrs 3a 0.8 1130am 5 8a 1.05 6p 0.45 total 18.4u/day No changes made to infusion settings today Advised to take insulin as usual for morning meal tomorrow, should not require further bolusing during the day while prepping for colonoscopy We discussed managing hypoglycemia risk while in prep phase as noted above Advised to alert staff prior to colonoscopy of insulin pump/CGM status Assessment & Plan (02/24/2020 1:50 PM EST): Current insulin pump setting Time Basal Rates? Time ICR Time ISF Time Target IOB 12am 0.4u/hr 12am 6 12am 50 12am 120mg/dl 4hrs 3a 0.8 1130am 5 8a 1.05 6p 0.45 total 18.4u/day No changes made to infusion settings today Assessment & Plan (01/17/2020 2:57 PM EDT): New insulin pump setting Time Basal Rates? Time ICR Time ISF Time Target IOB 12am 0.4u/hr 12am 6 12am 50 12am 120mg/dl 4hrs 3a 0.8 1130am 5 8a 1.05 6p 0.45 total 18.4u/day We adjusted basal rates modestly to optimize delivery during the day and evening Written instructions given on how to give bolus for correction of elevated blood sugar Advised to change infusion pod as soon as she can Assessment & Plan (09/12/2019 1:46 PM EDT): We did not have insulin pump information to review today, no changes made to settings Will return for follow up visit with educator staff to review new CGM use next week Assessment & Plan (06/07/2018 9:47 PM EST): Current insulin pump setting Time Basal Rates? Time ICR Time ISF Time Target IOB 12am 0.5u/hr 12am 1:6 12 am 1:50 12 am 120mg/dl 4hrs 6am 0.9u/hr 4pm 0.95u/hr 9pm 0.55u/hr 11pm 0.5u/hr No changes made to current settings Assessment & Plan (12/04/2017 1:30 PM EDT): We did not make any changes to insulin pump settings today Current insulin pump setting Time Basal Rates Time ICR Time ISF Time Target IOB 12am 0.55u/hr 12am 1:6 12 am 1:50 12 am 120mg/dl 4hrs 6am 0.9u/hr 4pm 0.95u/hr 9pm 0.55u/hr Assessment & Plan (07/31/2017 12:53 PM EDT): We did not make any changes to insulin pump settings We reviewed that pods are waterproof for swimming but I advised against using these in the hot tub due to heat which may denature insulin and also cause changes in insulin absorption Also discussed Dexcom sensor being waterproof for swimming however I again advised against the use of this in hot tub due to possible damage of transmitter in the heated environment Assessment & Plan (03/09/2017 8:52 PM EST): Rotating Omnipod insulin infusion pods well We discussed the waterproof nature of these as opposed to the PDM which is not waterproof, Endy is encouraged to inspect the integrity of her adhesive after swimming to ensure the pod stays attached for the desired duration Type 1 diabetes mellitus without complication Overview (07/31/2017): DIABETES HISTORY Diagnosis - Type 1 diabetes, dx ~2004 - first few years thought to be type 2 and treated with oral meds, eval at [facility] 2009 led to dx of type 1 Treatment history - oral meds until 2009 then started insulin; started insulin pump therapy spring 2015 and began CGM summer 2015 Assessment & Plan (02/05/2024 5:57 PM EDT): We adjusted insulin delivery today as noted, we discussed CGM patterns over the past two weeks, these are more variable than in the past however remain generally reassuring We discussed approach to steroid injection should this be necessary at upcoming appt with orthopedist for ongoing shoulder pain, alternate basal pattern programmed into PDM and Endy and her were advised how to use this and for how long, we also discussed mealtime dosing adjustments as noted Endy reports that her lifestyle is generally unchanged, her shoulder pain continues to pose challenges for her Endy is advised to contact us with any questions or concerns, she will follow up with our chemical educator staff in 3 months and with me in 6 months Assessment & Plan (08/02/2023 12:56 PM EDT): We did not adjust insulin delivery today, we discussed CGM patterns over the past two weeks, these are very reassuring and A1c is improved Endy is reassured that her pump settings are working well and she is encouraged to continue her excellent self care habits Endy reports that her lifestyle is generally unchanged, her shoulder pain continues to pose challenges for her We discussed possibility of reduced insulin requirement once her pain subsides, sleep improves, etc, she may note lower readings which will indicate need for change in insulin delivery and is advised to let us know Endy stopped gabapentin several weeks ago and this may have also contributed to glucose improvements Endy is advised to contact us with any questions or concerns, she will follow up with our chemical educator staff in 3 months and with me in 6 months Assessment & Plan (04/07/2023 12:19 PM EST): We did not adjust insulin delivery today, we discussed BGM and CGM patterns over the past several weeks, these are generally reassuring, but more severe hypoglycemia since being on fingersticks alone, mostly occurring mid afternoon This seems to be related to high blood sugar at lunch, and Endy may be entering in fake carbs to correct blood sugar Encouraged only entering the amount of carbs that she is ingesting Visit was mostly to review CGM insertion technique, this was reviewed in detail today CGM transmitter incorrectly entered into biomedical scientist, we reviewed how to pair a new transmitter, encouraging new transmitter should be paired every 90 days Briefly discussed dexcom G7, shown demo kit, currently just received G6 refill, but encouraged to keep this in mind for the future with next refill in the event Endy and Brad would like to upgrade, this would reduce risk of transmitter code error since transmitter and sensor are all in one Endy is advised to contact us with any questions or concerns, she will follow up with Michelle next month and with Dr. Castañeda in July CGM Trial Type of Diabetes: Diabetes mellitus Type 1 Assessment/HPI: Endy is here today for CGM trial. Procedures: Glucose Monitoring: Type of Sensor: Dexcom G6 Instruction: Patient Instructed on:, Calibrations, When to test BS, Troubleshooting, What to expect with the sensor, Patient instructed to remove sensor if redness, pain or bleeding occurs. . Insertion Site Selected:abdomen, Site Prep: Insertion site wiped with alcohol. Insertion: completed, area looks good, no redness, no bleeding. Plan: Patient will change sensor in 10 days, transmitter every 90 days Assessment & Plan (03/20/2023 8:47 AM EST): Patient is following with the diabetes center and is due to have her blood work including CMP and lipid profile. I will order the blood test and asked patient to continue her medication regimen as ordered by her specialist. Assessment & Plan (01/24/2023 11:53 AM EDT): We did not adjust insulin delivery today, we discussed CGM patterns over the past two weeks, these are generally reassuring and A1c is stable Endy is reassured that her pump settings are working well and she is encouraged to continue her excellent self care habits Endy reports that her lifestyle is generally unchanged She will be having some imaging scheduled soon and we discussed Omnipod pod and Dexcom sensor management for MRI, advised to contact [employer] for replacement sensor since she is likely to run short on her supply Endy is advised to contact us with any questions or concerns, she will follow up with our chemical educator staff in 3 months and with me in 6 months Assessment & Plan (07/19/2022 12:37 PM EDT): We discussed CGM patterns over the past two weeks, these are generally reassuring despite recent COVID infection Endy reports that her lifestyle is back to her usual now, she continues to be unable to be active due to foot drop, continues to ambulate with a cane or walker We adjusted insulin pump settings to reduce risk of hypoglycemia in the overnight period, Endy is encouraged to contact us if she notices and changes in her patterns that are concerning to her Endy is advised to contact us with any questions or concerns, she will follow up with our chemical educator staff in 3 months and with me in 6 months Assessment & Plan (07/11/2022 11:49 AM EDT): Patient has been following with Dr. Castañeda and her fasting glucose in the morning is usually averaging around 140. Her latest A1c is back up above 8 but her previous A1c was 7.5. Assessment & Plan (02/21/2022 3:42 PM EST): We did not adjust insulin delivery today, we discussed CGM patterns over the past two weeks, these are generally reassuring Endy's new PDM was set up for her with her current settings, she is given instructions to use this new PDM when she activates a new pod but to continue to use her current PDM for the pod currently in place Endy reports that her lifestyle is unchanged other than increased stressors currently, she is unable to be active due to foot drop, continues to ambulate with a cane; her evening snack varies and we discussed how this may impact her overnight blood sugars, she does have variability in her overnight patterns due to this, a snack that is more consistent in containing carbs and protein would likely provide more overnight stability Endy is advised to contact us with any questions or concerns, she will follow up with our chemical educator staff in 3 months and with me in 6 months Assessment & Plan (01/17/2022 1:05 PM EDT): We did not adjust insulin delivery today, we discussed CGM patterns over the past two weeks, these are generally reassuring We briefly discussed the other Omnipod versions today though she prefers her current version of Omnipod and will discuss this with customer care when she calls regarding possible issues with her PDM Endy reports that her lifestyle is unchanged, she is unable to be active due to foot drop, continues to ambulate with a cane; her evening snack varies and we discussed how this may impact her overnight blood sugars, advised to have a snack that is consistent in containing carbs and protein so if having fruit then should have cheese or nuts with this Endy is advised to contact us with any questions or concerns, she will follow up with our chemical educator staff in 3 months and with me in 6 months Assessment & Plan (11/24/2021 1:08 PM EDT): We did not adjust insulin delivery today, we discussed CGM patterns over the past two weeks, these are more reassuring than most recent A1c would suggest. Endy has shown improvement compared to CGM data from last visit. Meeting goal time in range with minimal hypoglycemia We reviewed increased risk for UTIs with diabetes and encouraged keeping blood sugars in target range as much as possible, remaining well hydrated, and practicing good hygiene We will submit PA for Freestyle lite test strips given that these are the test strips that allow testing through the Omnipod PDM We briefly discussed the other Omnipod versions today and I encouraged Endy to look into coverage for dash or omnipod 5, discussing that Medicare likely is not covering the Omnipod 5 but hopefully will be in the future She is aware that she can contact us for help with pump adjustments or trouble shooting issues with pump/bg management Endy reports that her lifestyle is unchanged, she is unable to be active due to foot drop, continues to ambulate with a cane Up to date on annual DM maintenance exams, reviewed recent blood work, no signs of kidney dysfunction, LDL mildly elevated, goal in DM < 70, encourage maintaining a heart healthy diet Endy is advised to contact me with any questions or concerns, she will follow up with Dr. Castañeda in January Assessment & Plan (07/16/2021 1:31 PM EDT): We did not adjust insulin delivery today, we discussed CGM patterns over the past two weeks, these are more reassuring than most recent A1c would suggest We reviewed some of the challenges in glucose patterns that Endy has had in the past 2-3 months, these seem to now be resolved and she is aware that she can contact us for help with pump adjustments or trouble shooting issues with pump/bg management There are some trends into low normal range during the day but these are not sustained and overall rate of hypoglycemia is low Endy reports that her lifestyle is unchanged, she is unable to be active due to foot drop, continues to ambulate with a cane Endy is advised to contact me with any questions or concerns, she will return to meet with Michelle Polanco in April, we will meet again in the spring Assessment & Plan (03/01/2021 11:57 AM EST): We did not adjust insulin delivery today, we discussed CGM patterns over the past two weeks which if anything indicate higher patterns overnight Some trends into low normal range but these are not sustained and overall rate of hypoglycemia is low We discussed management of elevated glucose due to infusion pod issues and need to change pod if elevated glucose is not responding to correction doses of insulin Endy reports that her lifestyle is unchanged, she is unable to be active due to foot drop We briefly discussed statin therapy, this would be helpful preventively for Endy with respect to CV health given underlying diabetes history, her most recent lipid panel was reviewed and she is reassured that this is in reasonable range, she is advised to discuss statin therapy with Dr. Blanco Endy is advised to contact me with any questions or concerns, she will return to meet with Michelle Polanco in April, we will meet again in the spring Assessment & Plan (08/27/2020 1:22 PM EDT): We discussed adjustment of insulin to carb ratio for afternoon/evening, this will reduce the amount of insulin delivered at meals and will certainly help in reducing hypoglycemia risk Endy is made aware that this change may result in her blood sugars running higher overnight and to let me know if these are too high, we will adjust basal rates We revisited how to correct a blood sugar if no meal is to be consumed, we discussed the process of navigating the PDM menu to deliver a bolus for blood sugar only rather than blood sugar and carbs Endy is encouraged to continue to work on eating a healthy diet, her consistency is helpful, she is also encouraged to try to stay active as consistently as she can Endy is advised to contact me with any questions or concerns, she will return in 3 months to meet with Michelle Polanco and in 6 months to meet with me Assessment & Plan (03/17/2020 10:30 AM EST): Will continue current insulin pump settings Instructed not to set lower temp basal rate during precolonoscopy prep phase as this may result in elevated blood sugars given Endy's glucose history Advised to take usual dose of insulin for breakfast on morning prior to prep start Once prep starts advised to be mindful about sugar containing liquids, she may require insulin bolus for this if taken in excess, otherwise sugar containing clear liquids such as white grape juice and popsicles as specified by GI staff should be used to manage blood sugars which may be trending down Since Endy's glucose patterns tend toward hyperglycemia overnight/morning there should be no issue with preprocedure hypoglycemia, Endy is advised to make staff aware of her insulin pump status and current glucose reading prior to her procedure Endy is advised to contact me in the precolonoscopy prep phase with any questions regarding blood sugar patterns Endy requests refill of glucagon, we discussed new formulations of this which result in easier administration, insurance prefers Gvoke hypopen and a prescription is sent to pharmacy, Endy is encouraged to contact me with questions Assessment & Plan (02/24/2020 1:49 PM EST): Recent vaccine caused ~48hrs of feeling unwell and high glucose readings at night, glucose trends seem to have returned to usual patterns as of yesterday Encouraged to continue to monitor glucose patterns We discussed anticipatory considerations after next shingles vaccine We did not adjust insulin pump settings today We will discuss considerations for upcoming colonoscopy at our next visit next month Assessment & Plan (01/17/2020 2:55 PM EDT): Recent illness Some discrepancy with insulin dosing, pod placement history, etc, Endy seems very scattered in her thoughts and I'm not sure that she is reliably managing her insulin delivery She is advised to change her insulin infusion pod when she gets home We discussed again how to give bolus for blood sugar only if wants to correct elevated blood sugar but is not planning on eating, written instructions provided We made some modest adjustments in insulin delivery, basal rates to optimize glucose patterns which even prior to the last few days have been running in high range Endy is encouraged to contact me with any questions or concerns, she has follow up next month with Quin Galvez and in 2 months with me Assessment & Plan (09/12/2019 1:51 PM EDT): Overall hypoglycemia risk is low and use of CGM helps Endy to proactively manage this Upgraded to new Dexcom CGM, made aware that Medicare may no longer cover test strips, will need to have test strips available in case CGM fails or readings need to be confirmed Will need updated A1c along with lipid panel, has upcoming visit with Dr. Blanco and there may be other labs he recommends for Endy We did not adjust insulin pump settings today Endy is encouraged to stay as active as she can consistently and to continue her efforts at eating a healthy diet Advised to call with any questions or concerns Assessment & Plan (06/07/2018 9:41 PM EST): Overall control is in reasonable and safe range, glycemic variability is modest We did not make any changes to insulin delivery settings today Late day hyperglycemia is likely related to choice of evening snack Assessment & Plan (05/21/2018 2:57 PM EST): Patient on insulin pump in the past needs long-acting insulin. Added Lantus 10 units daily, and will follow. Assessment & Plan (12/04/2017 1:43 PM EDT): We reviewed the CGM download together, Endy has a tendency for elevated blood sugars overnight which are at least partly due to her intake of defensive carbohydrates at night We discussed goal blood sugars at bedtime and taking into consideration any insulin on board which she can see on her PDM Reducing carb intake at night will lead to reduced blood sugars overnight and likely a decrease in overnight waking due to nocturia Endy is encouraged to call with any questions or concerns Assessment & Plan (07/31/2017 12:57 PM EDT): Blood sugars are quite reassuring overall considering Endy's past glucose patterns, I would anticipate improved A1c at next check if the current patterns continue FPG continue to be higher than desired however blood sugars in the normal range or low normal range overnight cause Endy distress and she often has glucose tablets at these levels, we did not make any changes in her pump settings to improve FPG Endy has been successfully using Dexcom CGM to help optimize blood sugars and avoid hypoglycemia Endy needs a Dexcom transmitter update, the following criteria apply to her case: This patient requires therapeutic CGM for management of diabetes mellitus. This patient has been using a home glucometer for blood sugar monitoring and has been monitoring 4 or more times per day This patient is treated with insulin and is on an insulin pump, this treatment regimen requires frequent adjustments by the patient on the basis of a therapeutic CGM testing results This patient will return for visits at least very 6 months to assess the effect of the current diabetes treatment regimen and to have insulin and medication therapy adjusted as needed for optimal outcome Assessment & Plan (07/12/2017 8:15 AM EDT): - patient is doing well and has been managing her insulin pump with guidance from her outpatient endocrinology team - she is anticipating discharge today - will sign off Assessment & Plan (03/09/2017 8:50 PM EST): Surprisingly Endy's A1c is unchanged today and remains in poor range, her blood glucose data actually looks much more reassuring than her A1c would suggest, based on this we did not make any changes to her current insulin pump settings Endy seems to be much more comfortable with blood sugars in the mid to high 100s at bedtime compared to her previous habit of trying to run over 200 at that time With Endy's upcoming travel to [place], we discussed insulin adjustment that she may need to make with respect to eating differently and increased activity, Endy is given some instructions regarding this Endy is given a travel letter to present to [facility] and is given instructions regarding the handling of her insulin pump and CGM at airport security She is encouraged to call us with any questions or concerns Seizure disorder 03/03/2017 Assessment & Plan (10/08/2024 9:34 PM EDT): Long history of epilepsy since 12. Denies breakthrough seizures. - Continue Depakote 500 mg twice daily - Prelim EEG read without epileptiform discharges - depakote level was within therapeutic range -Seizure precautions Assessment & Plan (10/07/2024 4:59 PM EDT): Long history of epilepsy since 12. Denies breakthrough seizures. - Continue Depakote 500 mg twice daily - Prelim EEG read without epileptiform discharges - depakote level was within therapeutic range -Seizure precautions Assessment & Plan (10/07/2024 5:07 AM EDT): Long history of epilepsy since 12. Denies breakthrough seizures. - Continue Depakote 500 mg twice daily -Obtaining Depakote level in a.m. -Seizure precautions -EEG in the morning Assessment & Plan (02/24/2023 11:42 AM EST): History of seizures. Depakote level within normal limits. Continued on Depakote 500 mg twice daily. Assessment & Plan (02/24/2021 1:58 PM EST): Check Depakote level. Follow with neurology. Assessment & Plan (05/20/2018 9:44 PM EST): The patient has not had a seizure in 5 or 6 years. They are grand mal seizures. Seems unlikely that she is postictal. Continue her medications. Assessment & Plan (07/12/2017 8:13 AM EDT): -Continue home Neurontin and depakote Rosacea 03/03/2017 Resolved Problems Problem Noted Date Diagnosed Date Resolved Date Pneumonia 10/07/2024 10/09/2024 Assessment & Plan (10/08/2024 9:34 PM EDT): Possible left lower lobe pneumonia. Continue management as noted above. Assessment & Plan (10/07/2024 4:59 PM EDT): Possible left lower lobe pneumonia. Continue management as noted above. Assessment & Plan (10/07/2024 5:07 AM EDT): Possible left lower lobe pneumonia. Continue management as noted above. Acute metabolic encephalopathy 10/07/2024 10/09/2024 Assessment & Plan (10/08/2024 9:34 PM EDT): Patient initially presented with acute generalized abdominal pain with associated nausea, vomiting, and diarrhea. Patient was then found to be fatigue and confused. Previous documentation noted mild to moderate cognitive impairment with memory loss. Patient was found to be febrile rectally with Tmax 101.4 Fahrenheit, leukocytosis 17.91 with left shift, and chest x-ray suspicious for left lower lobe opacity. Received 2 L IV fluid bolus and started on IV ceftriaxone and azithromycin. No history of respiratory symptoms -Agree there is no clinical history to suggest breath during symptoms she does have evidence of infection which is likely the cause of her acute cephalopathy -Agree there do not appear to be any meningeal signs and her mental status has improved - For thoroughness got head CT which did not show any acute findings -Given the recent GI symptoms and intra-abdominal infection would be considered however her abdominal exam is quite reassuring and vomiting and diarrhea have resolved, she is tolerating oral intake, would hold off on abdominal imaging for now -At this time though bacterial pneumonia seems less likely would continue a short course of antibiotics if no other site of infection is found, likely 3 to 5 days -Continue IV ceftriaxone and azithromycin for now with lactobacillus twice daily -blood culture - gram positive cocci in clusters, ultimately 1/4 coag negative staph with repeat blood ctx negative so presume contaminant and stopped vancomycin -Obtaining stool sample for testing if reoccurs Assessment & Plan (10/07/2024 4:59 PM EDT): Patient initially presented with acute generalized abdominal pain with associated nausea, vomiting, and diarrhea. Patient was then found to be fatigue and confused. Previous documentation noted mild to moderate cognitive impairment with memory loss. Patient was found to be febrile rectally with Tmax 101.4 Fahrenheit, leukocytosis 17.91 with left shift, and chest x-ray suspicious for left lower lobe opacity. Received 2 L IV fluid bolus and started on IV ceftriaxone and azithromycin. No history of respiratory symptoms -Agree there is no clinical history to suggest breath during symptoms she does have evidence of infection which is likely the cause of her acute cephalopathy -Agree there do not appear to be any meningeal signs and her mental status has improved - For thoroughness to get a head CT which did not show any acute findings -Given the recent GI symptoms and intra-abdominal infection would be considered however her abdominal exam is quite reassuring and vomiting and diarrhea have resolved, she is tolerating oral intake, would hold off on abdominal imaging for now -At this time though bacterial pneumonia seems less likely would continue a short course of antibiotics if no other site of infection is found, likely 3 to 5 days -Continue IV ceftriaxone and azithromycin for now with lactobacillus twice daily -Follow-up blood cultures -Obtaining stool sample for testing if reoccurs Assessment & Plan (10/07/2024 5:07 AM EDT): Patient initially presented with acute generalized abdominal pain with associated nausea, vomiting, and diarrhea. Patient was then found to be fatigue and confused. Previous documentation noted mild to moderate cognitive impairment with memory loss. Unclear if she is currently at baseline. Unfortunately was not at the bedside and unable to reach via telephone. But denies any respiratory or urinary complaints. Patient was found to be febrile rectally with Tmax 101.4 Fahrenheit, leukocytosis 17.91 with left shift, and chest x-ray suspicious for left lower lobe opacity. Received 2 L IV fluid bolus and started on IV ceftriaxone and azithromycin. Although not truly convinced given lack of respiratory symptoms. Other etiologies including infection from a GI source (benign abdomen), meningitis (no neck rigidity), DKA (no severe hypoglycemia or anion gap), or less likely seizure disorder. - [facility] -Repeat CBC and CMP and procalcitonin in the morning -Continue IV ceftriaxone and azithromycin for now with lactobacillus twice daily -Follow-up blood cultures -Obtaining stool sample for testing if reoccurs -Consider CT abdomen if evidence of abdominal pain/tenderness -Obtaining Keppra level -eeg in am Altered mental state 05/20/2018 019 Assessment & Plan (05/21/2018 2:56 PM EST): Seems to be improving. We are treating influenza A with supportive care only as she was 3 days into the illness before presenting for care. No evidence for viral or bacterial meningitis. Encounter for fitting or adj ustment of insulin pump 05/07/2017 03/01/2021 Non morbid obesity 03/03/2017 Assessment & Plan (03/01/2021 11:37 AM EST): BMI has been <30 since 2017, currently just under 30 Encouraged to continue to follow healthy diet Assessment & Plan (12/04/2017 1:29 PM EDT): Weight continues to be stable Assessment & Plan (07/31/2017 12:51 PM EDT): Weight has been stable over the past year, BMI 27-28 Will be returning to more activity once PT starts, currently fairly inactive Encounters Date Type Department Care Team Description 11/08/2024 Patient Outreach [facility] [address] [place] [address] Reina Price, INDU Post Discharge Follow Up Call (iCMP) 11/06/2024 8:23 AM EDT - 11/06/2024 11:59 PM EDT Hospital Encounter [facility] [address] [place] [address] Bryce Plunkett MD Discharge Disposition: Home or Self Care 11/05/2024 11:00 AM EDT Nutrition [facility] [address] [place] [address] Holly Castañeda MD Dawicki, HILDA Miles Type 1 diabetes mellitus with hyperglycemia (Primary Dx); Insulin pump in place; Acquired hypothyroidism; Type 1 diabetes mellitus without complication 10/31/2024 11:00 AM EDT Office Visit [facility] [address] [place] [address] Bryce Plunkett MD Diabetic mononeuropathy associated with type 2 diabetes mellitus (Primary Dx); Vitamin B12 deficiency; Seizure disorder; Type 1 diabetes mellitus with hyperglycemia; Other osteoporosis without current pathological fracture; Pain in joint of left shoulder; Memory loss 10/29/2024 10:43 AM EDT - 10/29/2024 11:59 PM EDT Hospital Encounter [facility] [address] [address] Warren Georges DO Discharge Disposition: Home or Self Care 10/25/2024 10:25 AM EDT - 10/25/2024 11:59 PM EDT Hospital Encounter [facility] Laboratory [address] [place] [address] [place] [address] Warren Georges DO Discharge Disposition: Home or Self Care 10/25/2024 9:50 AM EDT Office Visit [facility] [address] [place] [address] [place] [address] Warren Georges DO Other osteoporosis without current pathological fracture (Primary Dx); Vitamin D deficiency; 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 Telephone [facility] [address] [address] Agnieszka Arciniega LPN Medication Prior Authorization (Humalog) 10/14/2024 Patient Outreach [facility] [address] [place] [id number] Reina Price, INDU Post Discharge Follow Up Call (PDA) 10/10/2024 9:07 AM EDT - 10/10/2024 11:59 PM EDT Hospital Encounter [facility] Mri [address] [address] Bryce Plunkett MD Discharge Disposition: Home or Self Care 10/07/2024 Procedure Pass , Ct Scan [address] [address] 10/07/2024 Patient Outreach [facility] [address] [place] [phone] Yarelis Fan, LEXII ACO Care Coordination (TCM following) 10/06/2024 10:58 PM EDT - 10/09/2024 3:14 PM EDT Hospital Encounter [facility] Medsurg [address] [address] Ryland Shah MD Kielbasa, Shasta A, MD Discharge Disposition: Home or Self Care 10/01/2024 Telephone [facility] [address] [place] [address] [place] [address] Holly Castañeda MD [facility] Dept questions ([facility] [place] Dept questions) 10/01/2024 Telephone [facility] [address] [place] [phone] Warren Georges DO 09/30/2024 Telephone [facility] [address] [address] Jodie Richards [place] 09/19/2024 10:30 AM EDT Office Visit [address] [address] Bryce Plunkett MD Suspected sleep apnea (Primary Dx); Type 1 diabetes mellitus without complication; Lumbar radiculopathy; Diabetic mononeuropathy associated with type 2 diabetes mellitus; Memory changes; Seizure disorder 09/19/2024 Procedure Pass [facility] [address] [place] [address] 09/19/[address] [address] Marion Whitten [place] 08/30/2024 2:00 PM EDT Office Visit [address] [address] Rj Cui MD Diabetic mononeuropathy associated with type 2 diabetes mellitus (Primary Dx) 08/26/2024 Telephone [facility] [address] [place] [address] [place] [address] Agnieszka Arciniega LPN Blood Sugar Problem (Elevated BG) 08/26/2024 Telephone [facility] [address] [place] [address] Reina Price, pulley maintainer 08/22/2024 Patient Outreach [facility] [address] [place] [id number] Reina Price, RN Care Coordination (iCMP) from Last 3 Months Immunizations Immunization Administration Dates Next Due COVID-19 (Pre-01/30) Moderna Vaccine, mRNA, PF 07/02/2020,06/04/2020 Influenza High-Dose Quadriva lent Preservative Free IM 01/24/2023,02/14/2022,01/20/2020 Influenza High-Dose Trivalen t Preservative Free IM 01/25/2024 Influenza Quadrivalent Adjuv anted Preservative Free IM 01/04/2021 Influenza Quadrivalent Prese rvative Free IM 01/24/2018 Influenza Quadrivalent Prese rvative Free Intradermal 12/16/2011 Influenza Recombinant Val valent Preservative Free IM 02/26/2019 Influenza Trivalent Preserva tive Free IM 02/01/2017,02/24/2016,02/06/2015,02/12,12/26/2008 Influenza Trivalent w/ Preservative IM 7,02/06/2015,12/27/2010 Influenza trivalent preserva tive free intradermal 01/27/2014,01/28/2013,12/16/2011 Pneumococcal conjugate PCV13 10/30/2020 Pneumococcal polysaccharide PPSV23 03/09/2022, Td (adult) 5 Lf Tetanus Toxo id, PF, Adsorbed 12/20/2005 Tdap 09/19/2024,04/16/2014 Zoster live 11/12/2014 Zoster recombinant 09/16/2020,02/21/2020 Family History Medical History Relation Comments Lung cancer Father Diabetes mellitus Mother Obesity Mother Breast cancer Sister 1 Lung cancer Sister 1 Breast cancer Sister 2 robotic Breast cancer Sister 3 Relation Status Comments Father lung cancer Mother in MVA at a ge 54 Sister 1 breast cancer Sister 2 Sister 3 Social History Tobacco Use Types Packs/Day Years Used Date Smoking Tobacco: Former Cigarettes 0 04/10/1972 - 1979 Smokeless Tobacco: Never Tobacco Cessation:Counseling Given: Not Answered Comments:ceased smoking once became pregant Alcohol Use Standard Drinks/Week Comments No 0 (1 standard drink = 0.6 oz pur e alcohol) Home Health Assessment: Transportation Answer Date Recorded Lack of Transportation (Medical) No 04/28/2023 Lack of Transportation (Non-Medical) No 04/28/2023 Patient Unable or Declines to Respond No 04/28/2023 Education Answer Date Recorded Are you interested in more education? Not on emma e 08/04/2022 Are you concerned about learning? Not on file 08/04/2022 No 08/04/2022 No 08/04/2022 Food Answer Date Recorded Within the past 6 months we worried whether our food would run out before we got money to buy more. Unable to assess 025 Within the past 6 months the food we bought just didn't last and we didn't have enough money to get more. Unable to assess 10/06/2024 Residential Stability Answer Date Recor ded What is your housing situation today? Unable to assess 10/06/2024 How many times have you moved in the past 12 mon? Unable to assess 10/06/2024 Paying for Meds Answer Date Recorded Do you have trouble paying for medicines? Unable to assess 10/06/2024 Paying Utility Bills Answer Date Record ed Do you have trouble paying y our heating or electricity bill? Unable to assess 10/06/2024 Transportation Answer Date Recorded Has the lack of transportati on kept you from medical appointments or from getting medications? Unable to assess 10/06/2024 Digital Access Answer Date Recorded No 10/06/2024 No 10/06/2024 Do you have reliable internet access at home? Un able to assess 10/06/2024 Do you have a device (e.g., phone, tablet, computer) with a working camera? Unable to assess 10/06/2024 Intimate Partner Violence Answer Date R ecorded Are you denied basic needs s uch as food, clothing, or medical care? No 10/07/2024 In the past 12 months have y ou been in a relationship with a person who hurts, threatens, or tries to control you? No 10/07/2024 Are you denied basic needs s uch as food, clothing, or medical care? No 10/07/2024 In the past 12 months have y ou been in a relationship with a person who hurts, threatens, or tries to control you? No 10/07/2024 Comments No Sex and Gender Information Value Date Recorded Sex Assigned at Female 07/11/2017 3:00 PM EDT Legal Sex Female 9:56 PM EDT Gender Identity Female 07/11/2017 3:00 PM EDT Sexual Orientation Straight 07/11/2017 3: 00 PM EDT Last Filed Vital Signs Vital Sign Reading Time Taken Comments Blood Pressure 94/80 10/31/2024 11:22 AM EDT Pulse 80 10/31/2024 11:22 AM EDT Temperature 36.2 C (97.2 F) 10/25/2024 9:39 AM EDT Respiratory Rate 16 10/09/2024 4:00 AM EDT Oxygen Saturation 97% 10/31/2024 11:22 AM EDT Inhaled Oxygen Concentration - - Weight 68 kg (150 lb) 10/31/2024 11:22 AM EDT Height 160 cm (5' 2.99 ) 10/31/2024 11:22 AM EDT Body Mass Index 26.58 10/31/2024 11:22 AM EDT Plan of Treatment Upcoming Encounters Date Type Department Care Team (Late st Contact Info) Description 12/24/2024 10:30 AM EDT Office Visit [facility] [address] [place] [address] Bryce Plunkett MD [address] [place] [address] [address] [place] [address] 02/13/2025 11:50 AM EST Office Visit [facility] [address] [place] [address] [place] [address] Warren Georges DO [address] [place] [address] 02/14/2025 10:20 AM EST Office Visit [facility] [address] [place] [address] [place] [address] Holly Castañeda MD [address] [place] [phone] 05/13/2025 10:00 AM EST Nutrition [facility] [address] [place] [address] [place] [address] Amirah Choi LDN [address] [place] [phone] [email or web address] Health Maintenance Due Date Last Done Comments COLOGUARD 07/25/1999 FIT TEST 07/25/1999 FOBT 07/25/1999 SIGMOIDOSCOPY 07/25/1999 VIRTUAL COLONOSCOPY 07/25/1999 RSV VACCINE (1 - Risk 60-74 years 1-dose series) 2014 PAP SMEAR 09/18/2017 09/08/2006 DIABETIC EYE EXAM 10/21/2022 10/21/2021, , 10/10/2019, Additional history exists COVID-19 VACCINE ( season) 2024 01/25/2024, 01/31/2022, 03/08/2021, Additional history exists HEMOGLOBIN A1C 02/05/2025 11/05/2024, 07/10, 04/05/2024, Additional history exists DEPRESSION SCREENING 03/20/2025 03/20/2024 URINE MICROALBUMIN/CREATININE RATIO 04/05/2025 04/05/2024, 04/20/2022, 04/20/2022, Additional history exists BLOOD PRESSURE 05/03/2025 10/31/2024 TSH LEVEL 08/05/2025 08/05/2024, 03/11, 02/23/2023, Additional history exists SMOKING Hx and SMOKELESS TOBACCO SCREENING 10/07/2025 10/07/2024 VALPROIC ACID (DEPAKENE) LEVEL 10/07/2025 10/07/2024, 04/05/2024, 02/23/2023, Additional history exists CREATININE LEVEL 10/09/2025 10/09/2024, 04/2024, 10/07/2024, Additional history exists POTASSIUM LEVEL 10/09/2025 10/09/2024, 09/10, 10/06/2024, Additional history exists LIPID PANEL 11/06/2025 11/06/2024, 03/11, 03/09/2023, Additional history exists MAMMOGRAM 02/27/2026 02/28/2024, 05/2022, 01/07/2022, Additional history exists COLONOSCOPY 03/19/2030 03/19/2020 COLORECTAL CANCER SCREENING 03/19/2030 Adult Td,Tdap Booster 09/19/2034 09/19/2024 , 04/16/2014, 12/20/2005 HEPATITIS C SCREENING Completed 04/22/2019, 020 ZOSTER VACCINES Completed 09/16/2020, 02/08, 11/12/2014 PNEUMOCOCCAL VACCINES (50+ years) Completed 03/09/2022, 10/30/2020, 04/17/2015 OSTEOPOROSIS SCREENING INITIAL (ONE-TIME) Completed 10/29/2024, 12/07/2020 HEPATITIS A VACCINES Aged Out No long er eligible based on patient's age to complete this topic HIB VACCINES Aged Out No longer eligi ble based on patient's age to complete this topic MENINGOCOCCAL VACCINES (ACWY) Aged Out No longer eligible based on patient's age to complete this topic MENINGOCOCCAL VACCINES (B) Aged Out N o longer eligible based on patient's age to complete this topic Medical Devices Implanted Type Area Musical String Maker Device Identifier Shelf Expiration Date Model / Serial / Lot Cement Bone 20g Kyphx High Viscosity Radiopaque Kyphoplasty Single Dose - [id number] Implanted:Qty: 1 on 02/27/[address] MD at Bone Cement N/A: Spine Thoracic [employer] [id number] 07/08/2025 [id number] / / [id number] Description:t12 vertebral mk dy, bone cement Kit Mixer Cement Bone Kyphon Hv R High Viscosity Radiopaque Kyphoplasty Pk/1ea - [id number] Implanted:Qty: 1 on 02/27/[address] Gonzalez MD at [employer] [id number] 07/04/2025 [id number] / / [id number] Procedures Procedure Name Priority Date/Time Associated Diagnosis Comments LIPID PANEL Routine 11/06/2024 8:24 AM EDT Diabetic mononeuropathy associated with type 2 diabetes mellitus POCT GLUCOSE Routine 11/05/2024 11:36 AM EDT Type 1 diabetes mellitus with hyperglycemia POCT HEMOGLOBIN A1C Routine 11/05/2024 1 1:25 AM EDT Type 1 diabetes mellitus with hyperglycemia Insulin pump in place Acquired hypothyroidism Type 1 diabetes mellitus without complication BD DXA AXIAL (SPINE) WITH HIP Routine 10/29/2024 11:14 AM EDT Other osteoporosis without current pathological fracture VITAMIN B12 Routine 10/25/2024 10:31 AM EDT Homocystinemia VITAMIN B6 Routine 10/25/2024 10:31 AM EDT Homocystinemia MRI BRAIN WITHOUT CONTRAST Routine 10/10/2024 10:39 AM EDT Memory changes POCT GLUCOSE Routine 10/09/2024 12:01 PM EDT CBC AND DIFFERENTIAL Routine 10/09/2024 5:38 AM EDT MAGNESIUM Routine 10/09/2024 5:38 AM EDT C-REACTIVE PROTEIN Routine 10/09/2024 5: 38 AM EDT BASIC METABOLIC PANEL Routine 10/09/2024 5:38 AM EDT VANCOMYCIN, TROUGH Timed 10/08/2024 9: 44 PM EDT POCT GLUCOSE Routine 10/08/2024 8:36 PM EDT POCT GLUCOSE Routine 10/08/2024 4:42 PM EDT CREATININE/EGFR Routine 10/08/2024 12:58 PM EDT VANCOMYCIN, PEAK Timed 10/08/2024 12:5 8 PM EDT POCT GLUCOSE Routine 10/08/2024 12:19 PM EDT SEDIMENTATION RATE (ESR) Routine 10/08/2024 8:08 AM EDT CBC AND DIFFERENTIAL Routine 10/08/2024 8:08 AM EDT POCT GLUCOSE Routine 10/08/2024 8:05 AM EDT BLOOD CULTURE, ROUTINE STAT 10/07/2024 10:20 PM EDT BLOOD CULTURE, ROUTINE STAT 10/07/2024 10:20 PM EDT C. DIFFICILE PCR Routine 10/07/2024 10:1 8 PM EDT STOOL CULTURE Routine 10/07/2024 10:18 PM EDT OVA AND PARASITES, STOOL Routine 10/07/2024 10:18 PM EDT POCT GLUCOSE Routine 10/07/2024 9:30 PM EDT POCT GLUCOSE Routine 10/07/2024 6:19 PM EDT POCT GLUCOSE Routine 10/07/2024 5:02 PM EDT POCT GLUCOSE Routine 10/07/2024 4:[address] HEAD WITHOUT CONTRAST Routine 10/07/2024 2:23 PM EDT POCT GLUCOSE Routine 10/07/2024 12:07 PM EDT COVID PANDEMIC RESPIRATORY VIRAL ORDER (PRO) STAT 10/07/2024 10:43 AM EDT EEG Routine 10/07/2024 10:17 AM EDT POCT GLUCOSE Routine 10/07/2024 7:57 AM EDT VALPROIC ACID Timed 10/07/2024 5:58 AM EDT PROCALCITONIN Routine 10/07/2024 5:58 AM EDT CBC AND DIFFERENTIAL Routine 10/07/2024 5:58 AM EDT COMPREHENSIVE METABOLIC PANEL Routine 10/07/2024 5:58 AM EDT URINALYSIS W/REFLEX URINE CULTURE STAT 10/07/2024 2:07 AM EDT LACTIC ACID (LACTATE) STAT 10/07/2024 1:26 AM EDT COVID PANDEMIC RESPIRATORY VIRAL ORDER (PRO) STAT 10/06/2024 11:47 PM EDT XR CHEST PORTABLE STAT 10/06/2024 11: 44 PM EDT LACTIC ACID (LACTATE) STAT 10/06/2024 11:33 PM EDT LIPASE STAT 10/06/2024 11:33 PM EDT MAGNESIUM STAT 10/06/2024 11:33 PM EDT LFTS (HEPATIC PANEL) STAT 10/06/2024 11:33 PM EDT BASIC METABOLIC PANEL STAT 10/06/2024 11:33 PM EDT CBC AND DIFFERENTIAL STAT 10/06/2024 11:33 PM EDT BLOOD CULTURE, ROUTINE STAT 10/06/2024 11:33 PM EDT BLOOD CULTURE, ROUTINE STAT 10/06/2024 11:33 PM EDT POCT GLUCOSE Routine 10/06/2024 11:26 PM EDT ECG 12-LEAD STAT 10/06/2024 11:24 PM EDT TSH Routine 08/05/2024 12:08 PM EDT Acquired hypothyroidism MICROALBUMIN/CREATINI NE RATIO, RANDOM URINE Routine 04/05/2024 9:29 AM EST Type 1 diabetes mellitus without complication BI MAMMOGRAM SCREENING WITH TOMOSYNTHESIS WITH CAD (BILATERAL) Routine 02/28/2024 11:15 AM EST Breast screening DIABETES EYE EXAM FOR RESULT ENTRY ONLY Routine 10/21/2021 ENDOSCOPY, COLON 03/19/2020 8:58 AM EST HEPATITIS C ANTIBODY, QUALITATIVE Routine 04/22/2019 3:24 PM EST Annual physical exam PAP SMEAR FOR RESULT ENTRY ONLY Routine 09/08/2006 11:50 AM EDT from Last 3 Months or Most Recently Relevant to Health Maintenance Results * (ABNORMAL) Lipid panel (11/06/2024 8:24 AM EDT) HDL 64 mg/dL [facility] Comment: Interpretation <40 mg/dL: Low HDL cholesterol (major risk factor for CHD) Greater than or equal to 60 mg/dL: High HDL cholesterol ( negative risk factor for CHD) HDL - cholesterol is affected by a number of factors, e.g. smoking, excerise, hormones, sex and age. CHOLESTEROL 172 0 - 240 mg/dL [facility] TRIGLYCERIDES 63 30 - 160 mg/dL [facility] LDL 95 50 - 129 mg/dL [facility] Comment: LDL levels in terms of risk for coronary heart disease: <100 mg/dL: Optimal 100-129 mg/dL: Near or above optimal 130-159 mg/dL: Borderline high 160-189 mg/dL: High >190 mg/dL: Very High CARDIAC RISK RATIO 2.7(L) 3.3 - 4.4 C [facility] Blood 11/06/2024 8:24 AM EDT 11/06/2024 8:27 AM EDT us Bryce Plunkett MD LAB BLOOD ORDERABLES Final Resul t [address] [address] * POCT Glucose (11/05/2024 11:36 AM EDT) Glucose 85 70 - 100 mg/dL EXTERNAL NON-INTERFACED REF LAB Other 11/05/2024 11:3 6 AM EDT us Holly Castañeda MD POINT OF CARE TEST ORDERABLES F inal Result EXTERNAL NON-INTERFACED REF LAB * (ABNORMAL) POCT Hemoglobin A1c (11/05/2024 11:25 AM EDT) Hemoglobin A1c 6.7(A) 4.2 - 5.6 % [facility] Other 11/05/2024 11:2 5 AM EDT us Cary Weems CNP POINT OF CARE TEST ORDERABLES Final Result Performing Organization Address [facility] de Phone Number [address] [address], [facility] * BD DXA AXIAL (SPINE) WITH HIP (10/29/2024 11:14 AM EDT) Anatomical Region Laterality Modality Bone Density Bone Density 10/29/2024 11:0 0 AM EDT Impressions 10/30/2024 10:16 AM EDT Interpretation: Osteoporosis. Narrative 10/30/2024 10:16 AM EDT Referred By: WARREN GEORGES Indications: Osteoporosis Scanner: [employer] A with serial# of [id number] located at [facility] Bone Density Scan (DXA) 10/29/24 Details of prior DXA scans are available by clicking View Full Report BMD T- Z- Skeletal Site gm/cm2 score score BMD Change Since Prior Scan ------ ----- ----- PA Spine (L1-L4) 0.754 -2.70 -0.50 0.008 (stable) since 12/07/2020 Total Hip (Left) 0.586 -2.90 -1.40 -0.042 (-6.7%)* since 12/07/2020 Femoral Neck (Left) 0.558 -2.60 -0.80 0.002 (stable) since 12/07/2020 ------ ----- ----- * Denotes significant change when >= 0.022 g/cm2 for the spine, 0.027 g/cm2 for the total hip, 0.029 g/cm2 for the femoral neck. Interpretation: Osteoporosis. Technical Quality: Imaging of all sites was of adequate quality. FRAX: A FRAX(r) score is not provided because the patient has osteoporosis, which is generally an indication for treatment. Reviewed By: Gamal Seu MD on 10/30/2024 10:16:39 Additional Information: -World Health Organization criteria classify adults based on lowest T-score at PA spine, hip or forearm: Normal (T-score >= -1.0), Osteopenia (T-score between -1 and -2.5), or Osteoporosis (T-score <= -2.5). At [facility], T-scores are compared to peak bone density of a young white gender matched reference population. - For premenopausal women and men under the age of 50, Z-scores (comparison to age, gender, and ethnicity matched reference population) are used: Above expected range for age (Z-score >= 2.0), Within expected range of age (Z-score 1.9 to -1.9), or Below expected range for age (Z-score <= -2.0). - The Bone Health and Osteoporosis Foundation recommends that treatment be considered in men aged more than 50 years and in postmenopausal women with ANY of the following: Prior hip or vertebral fractures; T-score of <= -2.5 at the PA spine or hip; or 10 year fracture probability by FRAX of >= 3% for the hip or >= 20% for major osteoporotic fracture. - The FRAX algorithm (https://www.ana maria.ac.uk/FRAX/tool.aspx) is designed to predict 10-year fracture risk in treatment-naive adults between the ages of 40 and 90. It is not intended to be used in those receiving pharmacologic osteoporosis treatment. - The TBS is derived from the texture of the DXA spine image and has been shown to be related to bone microarchitecture and fracture risk. This data provides information independent of BMD value. It adds to fracture risk assessment with a FRAX adjusted for TBS score. If your patient had a TBS and qualified for a FRAX score, the reported FRAX score has been adjusted for TBS. TBS Score Interpretation 1.350 and greater Normal bone microarchitecture 1.200 to 1.350 Partially degraded bone microarchitecture 1.200 and less Degraded bone microarchitecture - Including race/ethnicity in the generation of T- or Z-scores or in the FRAX calculation is complicated, and currently undergoing active review to ensure that we can give patients the best information on their risk of fracture. - Some prior studies may not be compatible with our comparison software. - Click on View Full Report to see subsequent pages with images and prior bone density results. Procedure Note Gamal Sue MD - 10/30/2024 Referred By: WARREN GEORGES Indications: Osteoporosis Scanner: [employer] A with serial# of [id number] located at [facility] Bone Density Scan (DXA) 10/29/24 Details of prior DXA scans are available by clicking View Full Report BMD T- Z- Skeletal Site gm/cm2 score score BMD Change Since Prior Scan ------ ----- PA Spine (L1-L4) 0.754 -2.70 -0.50 0.008 (stable) since12/07/2020 Total Hip (Left) 0.586 -2.90 -1.40 -0.042 (-6.7%)* 12/07/2020 Femoral Neck (Left) 0.558 -2.60 -0.80 0.002 (stable) 12/07/2020 ------ ----- * Denotes significant change when >= 0.022 g/cm2 for the spine, 0.027g/cm2 for the total hip, 0.029 g/cm2 for the femoral neck. Interpretation: Osteoporosis. Technical Quality: Imaging of all sites was of adequate quality. FRAX: A FRAX(r) score is not provided because the patient hasosteoporosis, which is generally an indication for treatment. Reviewed By: Gamal Sue MD on 10/30/2024 10:16:39 Additional Information: -World Health Organization criteria classify adults based on lowestT-score at PA spine, hip or forearm: Normal (T-score >= -1.0), Osteopenia (T-score between -1 and -2.5), or Osteoporosis (T-score <= -2.5). At [facility], T-scores are compared to peak bone density of a young white gender matched reference population. - For premenopausal women and men under the age of 50, Z-scores(comparison to age, gender, and ethnicity matched reference population) are used:Above expected range for age (Z-score >= 2.0), Within expected range of age (Z-score 1.9 to -1.9), or Below expected range for age (Z-score <= -2.0). - The Bone Health and Osteoporosis Foundation recommends that treatment be considered in men aged more than 50 years and in postmenopausal women with ANY of the following: Prior hip or vertebral fractures; T-score of <= -2.5 at the PA spine or hip; or 10 year fracture probability by FRAX of >= 3%for the hip or >= 20% for major osteoporotic fracture. - The FRAX algorithm (https://www.ana maria.ac.uk/FRAX/tool.aspx) is designed to predict 10-year fracture risk in treatment-naive adultsbetween the ages of 40 and 90. It is not intended to be used in those receiving pharmacologic osteoporosis treatment. - The TBS is derived from the texture of the DXA spine image and has been shown to be related to bone microarchitecture and fracture risk. This data provides information independent of BMD value. It adds to fracture risk assessment with a FRAX adjusted for TBS score. If your patient had a TBSand qualified for a FRAX score, the reported FRAX score has been adjusted for TBS. TBS Score Interpretation 1.350 and greater Normal bone microarchitecture 1.200 to 1.350 Partially degraded bone microarchitecture 1.200 and less Degraded bone microarchitecture - Including race/ethnicity in the generation of T- or Z-scores or in the FRAX calculation is complicated, and currently undergoing active review to ensure that we can give patients the best information on their risk of fracture. - Some prior studies may not be compatible with our comparison software. - Click on View Full Report to see subsequent pages with images andprior bone density results. IMPRESSION: Interpretation: Osteoporosis. Warren Georges DO IMG BD BONE DENSITY DEXA Final R esult * Vitamin B6 (10/25/2024 10:31 AM EDT) [facility] Signature VITAMIN B6 6 5 - 50 mcg/L [facility] Comment: (NOTE) ADDITIONAL INFORMATION This test was developed and its performance characteristics determined by [facility] in a manner consistent with CLIA requirements. This test has not been cleared or approved by the U.S. Food and Drug Administration. Blood 10/25/2024 10:3 1 AM EDT 10/25/2024 10:45 AM EDT Warren José Manuel LAB BLOOD ORDERABLES Final Resul t Performing Organization Address City/[facility]/ZIP Co de Phone Number [facility] [address] [place] [address] * (ABNORMAL) Vitamin B12 (10/25/2024 10:31 AM EDT) VITAMIN B12 <150(L) 232 - 1245 pg/mL [facility] Blood 10/25/2024 10:3 1 AM EDT 10/25/2024 10:45 AM EDT [facility] LAB BLOOD ORDERABLES Final Resul t Performing Organization Address [facility] de Phone Number [address] [address] * MRI BRAIN WITHOUT CONTRAST (10/10/2024 10:39 AM EDT) Anatomical Region Laterality Modality Head Magnetic Resonan ce 10/14/2024 10:3 5 AM EDT Impressions 10/14/2024 10:47 AM EDT 1. No acute infarct, hemorrhage, mass lesion, extra-axial collection, or hydrocephalus. 2. Mild to moderate generalized cerebral volume loss. 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 3. Mild chronic small vessel disease. Narrative 10/14/2024 10:47 AM EDT MRI BRAIN WITHOUT CONTRAST Referring clinician's provided indication for this examination in [facility]: * Memory Loss TECHNIQUE: MRI BRAIN WITHOUT CONTRAST Multi-sequence, multi-planar MRI of the brain was performed without intravenous contrast. COMPARISON: CT HEAD WITHOUT CONTRAST FINDINGS: Brain Parenchyma: No evidence of acute infarct, mass lesion, or hemorrhage. Mild scattered T2 hyperintensity in the periventricular white and deep matter, likely a manifestation of chronic small vessel disease. No evidence of microhemorrhages or superficial siderosis. 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 Mild to moderate generalized cerebral volume loss. Ventricular System and Extra-Axial Spaces: No midline shift. No hydrocephalus. No extra-axial collections.Tiny 4 mm lipoma incidentally noted along the falx. Extracranial Structures: Arterial flow voids in the skull base are present. The extracranial soft tissues and orbits are unremarkable. No osseous lesions identified. Mild opacification of the right mastoid air cells. Mild mucosal thickening in the right ethmoid sinus. Procedure Note Kevin Todd MD - 10/14/2024 MRI BRAIN WITHOUT CONTRAST Referring clinician's provided indication for this examination in Epic: *Memory Loss TECHNIQUE: MRI BRAIN WITHOUT CONTRAST Multi-sequence, multi-planar MRI of the brain was performed withoutintravenous contrast. COMPARISON: CT HEAD WITHOUT CONTRAST FINDINGS: Brain Parenchyma: No evidence of acute infarct, mass lesion, orhemorrhage. Mild scattered T2 hyperintensity in the periventricular whiteand deep matter, likely a manifestation of chronic small vessel disease.No evidence of microhemorrhages or superficial siderosis. Severe disproportionate cerebellar atrophy, likely due to long-termantiepileptic medication usage. Mild to moderate generalized cerebralvolume loss. Ventricular System and Extra-Axial Spaces: No midline shift. Nohydrocephalus. No extra-axial collections.Tiny 4 mm lipoma incidentallynoted along the falx. Extracranial Structures: Arterial flow voids in the skull base arepresent. The extracranial soft tissues and orbits are unremarkable. Noosseous lesions identified. Mild opacification of the right mastoid aircells. Mild mucosal thickening in the right ethmoid sinus. IMPRESSION: 1. No acute infarct, hemorrhage, mass lesion, extra-axial collection, orhydrocephalus. 2. Mild to moderate generalized cerebral volume loss. Severedisproportionate cerebellar atrophy, likely due to long-term antiepilepticmedication usage. 3. Mild chronic small vessel disease. Bryce Plunkett MD IM MR HEAD/NECK Final Result * (ABNORMAL) POCT Glucose (10/09/2024 12:01 PM EDT) Only the most recent of12 resultswithin the time period is included. Glucose, POCT 171(H) 70 - 100 mg/dL [facility] 10/09/2024 12:0 1 PM EDT 10/09/2024 12:04 PM EDT us Kaycee Cazares MD POINT OF CARE TEST ORDERABL ES Final Result [facility] [address] [place] [address] * (ABNORMAL) CBC and differential (10/09/2024 5:38 AM EDT) Only the most recent of4 resultswithin the time period is included. WBC 7.89 4.00 - 11.00 K/uL [facility] RBC 3.43(L) 4.00 - 5.20 M/uL [facility] HGB 11.1(L) 12.0 - 16.0 g/dL [facility] HCT 33.7(L) 36.0 - 46.0 % [facility] PLT 193 150 - 450 K/uL [facility] MCV 98.3 80.0 - 100.0 fL [facility] MCH 32.4(H) 27.0 - 31.0 pg [facility] MCHC 32.9 32.0 - 36.0 g/dL [facility] RDW 13.9 11.5 - 14.5 % [facility] MPV 9.5 8.4 - 12.0 fL [facility] NRBC 0.00 0.00 /100 WBCs [facility] ABSOLUTE NRBC 0.00 0.00 K/uL [facility] DIFF METHOD Auto [facility] NEUTS 58.9 48.0 - 76.0 % [facility] LYMPHS 27.1 18.0 - 41.0 % [facility] MONOS 11.5(H) 4.0 - 11.0 % [facility] EOS 1.5 0.0 - 5.0 % [facility] BASOS 0.4 0.0 - 1.5 % [facility] Granulocytes, immature (%) 0.6 0.0 - 0.9 % [facility] ABSOLUTE NEUTS 4.64 1.92 - 7.60 K/uL [facility] ABSOLUTE LYMPHS 2.14 0.72 - 4.10 K/uL [facility] ABSOLUTE MONOS 0.91 0.16 - 1.10 K/uL [facility] ABSOLUTE EOS 0.12 0.00 - 0.50 K/uL [facility] ABSOLUTE BASOS 0.03 0.00 - 0.15 K/uL [facility] Granulocytes, immature 0.05 0.00 - 0.09 K/uL [facility] Blood 10/09/2024 5:38 AM EDT 10/09/2024 6:02 AM EDT us Kaycee Cazares MD LAB BLOOD ORDERABLES Final Result Performing Organization Address City/[facility]/ZIP Co de Phone Number [address] [address] * (ABNORMAL) C-Reactive Protein (10/09/2024 5:38 AM EDT) C REACTIVE PROTEIN 42.5(H) 0.0 - 4.0 mg/L [facility] Blood 10/09/2024 5:38 AM EDT 10/09/2024 6:02 AM EDT Kaycee Cazares MD LAB BLOOD ORDERABLES Final Result [address] [address] * Magnesium (10/09/2024 5:38 AM EDT) Only the most recent of2 resultswithin the time period is included. MAGNESIUM 1.8 1.6 - 2.6 mg/dL [facility] Blood 10/09/2024 5:38 AM EDT 10/09/2024 6:02 AM EDT us Kaycee Cazares MD LAB BLOOD ORDERABLES Final Result [address] [address] * (ABNORMAL) Basic metabolic panel (10/09/2024 5:38 AM EDT) Only the most recent of2 resultswithin the time period is included. SODIUM 139 133 - 146 mmol/L [facility] CHLORIDE 103 96 - 108 mmol/L [facility] POTASSIUM 3.7 3.3 - 5.1 mmol/L [facility] CO2 27 21 - 35 mmol/L [facility] BUN 7 6 - 19 mg/dL [facility] CREATININE 0.50 0.5 - 1.5 mg/dL [facility] GLUCOSE 159(H) 70 - 99 mg/dL [facility] CALCIUM 8.6 8.4 - 10.3 mg/dL [facility] EGFR 101 >59 mL/min/1.7 3m2 [facility] Comment:Estimated glomerular filtration rate calculated using the CKD-EPI refit equation. ANION GAP 13 10 - 20 mmol/L [facility] Blood 10/09/2024 5:38 AM EDT 10/09/2024 6:02 AM EDT us Kaycee Cazares MD LAB BLOOD ORDERABLES Final Result [address] [address] * (ABNORMAL) Vancomycin, trough (10/08/2024 9:44 PM EDT) VANCOMYCIN,TRO UGH 8.7(L) 10.0 - 20.0 ug/mL [facility] Comment: Interpretation: Therapeutic Range: 10.0 - 20.0 ug/ml. Toxic: Greater than 30.0 ug/ml. Blood 10/08/2024 9:44 PM EDT 10/08/2024 9:52 PM EDT Kaycee Cazares MD LAB BLOOD ORDERABLES Final Result Performing Organization Address City/[facility]/ZIP Co de Phone Number [address] [address] * Creatinine/eGFR (10/08/2024 12:58 PM EDT) CREATININE 0.50 0.5 - 1.5 mg/dL [facility] EGFR 101 >59 mL/min/1.7 3m2 [facility] Comment:Estimated glomerular filtration rate calculated using the CKD-EPI refit equation. Blood 10/08/2024 12:5 8 PM EDT 10/08/2024 1:04 PM EDT Kaycee Cazares MD LAB BLOOD ORDERABLES Final Result Performing Organization Address [facility] Co de Phone Number [address] [address] * (ABNORMAL) Vancomycin, peak (10/08/2024 12:58 PM EDT) VANCOMYCIN,PEA K 23.7(L) 30.0 - 40.0 ug/mL [facility] Comment: Interpretation: Therapeutic Range: 30 - 40 ug/ml. Toxic: Greater than or equal to 50 ug/ml. Blood 10/08/2024 12:5 8 PM EDT 10/08/2024 1:04 PM EDT Kaycee Cazares MD LAB BLOOD ORDERABLES Final Result Performing Organization Address [facility]/ZIP Co de Phone Number [address] [address] * Sedimentation rate (ESR) (10/08/2024 8:08 AM EDT) ESR 6 0 - 30 mm/h [facility] Blood 10/08/2024 8:08 AM EDT 10/08/2024 8:25 AM EDT Kaycee Cazares MD LAB BLOOD ORDERABLES Final Result Performing Organization Address [facility]/ZIP Co de Phone Number [address] [address] [address] * Blood Culture, Routine (10/07/2024 10:20 PM EDT) Only the most recent of4 resultswithin the time period is included. Special Requests None 10/07/2024 9:58 PM EDT [facility] BLOOD CULTURE NO GROWTH 5 DAYS 10/12/2024 10:37 PM EDT [facility] Blood (Blood) 10/07/2024 10: 20 PM EDT 10/07/2024 10:24 PM EDT Kaycee Cazares MD MICROBIOLOGY - GENERAL BETTIE LOBATO Final Result Performing Organization Address [facility] Co de Phone Number [address] [address] * C. DIFFICILE PCR (10/07/2024 10:18 PM EDT) C.DIFFICILE PCR Negative Negative [facility] C.DIFFICILE STRAIN PRESUMPTIVE NEGATIVE PRESUMPTIVE NEGATIVE [facility] Comment:Detection of 027/NAP 1/BI strains of C.difficile is presumptive and is solely for epidemiological purposes and is not intended to guide or monitor treatment of infections. Stool (Stool) 10/07/2024 10: 18 PM EDT 10/07/2024 10:29 PM EDT Kaycee Cazares MD MICROBIOLOGY - GENERAL BETTIE LOBATO Final Result Performing Organization Address City/[facility]/ZIP Co de Phone Number [address] [address] * Ova and parasites, stool (10/07/2024 10:18 PM EDT) Parasitic exam FINAL 5 [facility] DPT OF LAB MED AND PAT+ Comment: (NOTE) SOURCE: STOOL, STLP OVA AND PARASITE, MICROSCOPY, F FINAL No parasites seen. Cryptosporidium, Cyclospora, and microsporidia are not readily detected by this method. Single negative specimen does not rule out parasitic infection. Stool (Stool) 10/07/2024 10: 18 PM EDT 10/07/2024 10:28 PM EDT Ryland Shah MD MICROBIOLOGY - GENERAL ORDERABL ES Final Result Performing Organization Address City/State/[facility] Co de Phone Number [facility] DPT OF LAB MED AND PAT+ [address] [place] [address] * Stool culture (10/07/2024 10:18 PM EDT) Special Requests None 10/07/2024 10:20 PM EDT [facility] Stool Culture NO SALMONELLA, SHIGELLA OR CAMPYLOBACTER ISOLATED 10/09/2024 8:45 AM EDT [facility] Stool (Stool) 10/07/2024 10: 18 PM EDT 10/07/2024 10:29 PM EDT Ryland Shah MD MICROBIOLOGY - GENERAL ORDERABL ES Final Result Performing Organization Address [facility] de Phone Number [facility] [address] [place] [address] * CT HEAD WITHOUT CONTRAST (10/07/2024 2:23 PM EDT) Anatomical Region Laterality Modality Head Computed Tomogra phy 10/07/2024 2:26 PM EDT Impressions 10/07/2024 2:30 PM EDT 1. No acute intracranial findings. Narrative 10/07/2024 2:[address] HEAD WITHOUT CONTRAST Referring clinician's provided indication for this examination in Epic: * Delirium TECHNIQUE: Multidetector-row CT of the head was performed without intravenous contrast using tailored dose modulation techniques. Images were reconstructed in the axial, coronal, and sagittal planes. COMPARISON: CT head February 23, 2023 FINDINGS: Brain Parenchyma: Normal. No midline shift, mass effect, parenchymal hemorrhage, or evidence of acute territorial infarct. Ventricular System and Extra-Axial Spaces: No extra-axial fluid collections. Basal cisterns are patent. No hydrocephalus. Osseous and Extracranial Structures: Degenerative remodeling right TMJ. Small amount of opacification within the right mastoid. No suspicious bone lesion. There is mild mucosal thickening within the right anterior ethmoids. No calvarial fracture. Procedure Note Jesus Alberto Soares, DO - 10/07/2024 CT HEAD WITHOUT CONTRAST Referring clinician's provided indication for this examination in Epic: *Delirium TECHNIQUE: Multidetector-row CT of the head was performed withoutintravenous contrast using tailored dose modulation techniques. Imageswere reconstructed in the axial, coronal, and sagittal planes. COMPARISON: CT head February 23, 2023 FINDINGS: Brain Parenchyma: Normal. No midline shift, mass effect, parenchymalhemorrhage, or evidence of acute territorial infarct. Ventricular System and Extra-Axial Spaces: No extra-axial fluidcollections. Basal cisterns are patent. No hydrocephalus. Osseous and Extracranial Structures: Degenerative remodeling right TMJ.Small amount of opacification within the right mastoid. No suspicious bonelesion. There is mild mucosal thickening within the right anteriorethmoids. No calvarial fracture. IMPRESSION: 1. No acute intracranial findings. Kaycee Cazares MD IMG CT HEAD/NECK Final Resu lt * COVID Pandemic Respiratory Viral Order (PRO) (10/07/2024 10:43 AM EDT) Only the most recent of2 resultswithin the time period is included. Test Ordered COVID has been ordered [facility] SPECIMEN SOURCE/DESCRIPTION SWAB [facility] SARS-CoV 2 (COVID-19) PCR Negative Negative [facility] Comment: SARS-CoV-2 not detected Negative results do not preclude SARS-CoV-2 infection and should not be used as the sole basis for patient management decisions. Negative results must be combined with clinical observations, patient history, and epidemiological information. This test has been authorized by the FDA under an Emergency Use Authorization (EUA) for use by authorized laboratories. Other (Nasopharyngeal swab) 10/07/2024 10:43 AM EDT 10/07/2024 10:59 AM EDT us Kaycee Cazares MD BODY FLUIDS AND STOOLS BETTIE LOBATO Final Result [address] [address] * EEG (10/07/2024 10:17 AM EDT) Anatomical Region Laterality Modality EEG Impressions 10/08/2024 11:36 AM EDT This was a normal adult EEG in the awake, drowsy and asleep states. This was a technically limited study with electrode artifact at T5 and O2 limiting interpretation. Within these limits, no epileptiform abnormalities were present. COMPARISON: No prior EEG available INDICATION: 69 year old female with history of mild to moderate cognitive impairment, type 1 diabetes with insulin pump, remote seizure disorder, hypothyroidism who presented to the [facility] emergency room for altered mental status. PERTINENT MEDICATIONS: Valproic Acid. METHOD: Standard 10-20 electrode placement, single lead EKG and continuous video. DETAIL: This was a technically limited study with electrode artifact at T5 and O2 limiting interpretation of this study. The patient was asleep for the majority of this study. The awake background during a period of brief arousal was symmetric, demonstrated fair AP organization, and consisted of a 20-30 uV, 8 Hz, posterior dominant rhythm. Stage II sleep was seen and characterized by spindles and vertex waves. No epileptiform abnormalities were observed. Photic stimulation was performed and did not produce a robust driving response. Hyperventilation was not performed. EKG: No dysrhythmia at a HR of 60-70 BPM. Isabel Garcia MD, PhD [facility] Epilepsy Fellow 10/07/24 I ([facility]) have reviewed the study with the fellow and edited this report. Start Time: 10/07/2024 9:49 AM End Time: 10/07/2024 10:17 AM us Ryland Shah MD NEUROLOGY ORDERABLES Final Resu lt * (ABNORMAL) Procalcitonin (10/07/2024 5:58 AM EDT) Procalcitonin 0.36(H) 0.00 - 0.25 ng/mL [facility] Comment: <=0.25 ng/mL: Bacterial pneumonia is unlikely. <0.5 ng/mL: Low likelihood of systemic bacterial infection / sepsis. Localized infection is possible. 0.5-2.0 ng/mL: Systemic bacterial infection / sepsis is possible, but other conditions can induce PCT levels in this range as well (e.g., pancreatitis,severe trauma, circulatory shock, surgery, altamirano, inhalation injury.) >2.0 ng/mL: Systemic bacterial infection / sepsis is likely. Additional information can be found in the [facility] Procalcitonin Guidelines, available at http://handbook.mgb.org/3817/Content/4-138-251 Blood 10/07/2024 5:58 AM EDT 10/07/2024 6:16 AM EDT us Ryland Shah MD LAB BLOOD ORDERABLES Final Resu lt [address] [address] * (ABNORMAL) Comprehensive metabolic panel (10/07/2024 5:58 AM EDT) SODIUM 143 133 - 146 mmol/L [facility] POTASSIUM 4.7 3.3 - 5.1 mmol/L [facility] CHLORIDE 110(H) 96 - 108 mmol/L [facility] CO2 25 21 - 35 mmol/L [facility] BUN 14 6 - 19 mg/dL [facility] CREATININE 0.50 0.5 - 1.5 mg/dL [facility] GLUCOSE 154(H) 70 - 99 mg/dL [facility] ALBUMIN 3.1(L) 3.9 - 4.8 g/dL [facility] TOTAL PROTEIN 4.9(L) 6.5 - 8.0 g/dL [facility] CALCIUM 7.7(L) 8.4 - 10.3 mg/dL [facility] ALKALINE PHOSPHATASE 42 39 - 117 U/L [facility] TOTAL BILIRUBIN 0.3 0.0 - 1.2 mg/dL [facility] AST 10 0 - 37 U/L [facility] ALT <5 0 - 40 U/L [facility] GLOBULIN 1.8 1 - 4.8 g/dL [facility] EGFR 101 >59 mL/min/1.7 3m2 [facility] Comment:Estimated glomerular filtration rate calculated using the CKD-EPI refit equation. ANION GAP 13 10 - 20 mmol/L [facility] Blood 10/07/2024 5:58 AM EDT 10/07/2024 6:16 AM EDT us Ryland Shah MD LAB BLOOD ORDERABLES Final Resu lt [address] [address] * Valproic acid (10/07/2024 5:58 AM EDT) VALPROIC ACID 72.7 50.0 - 100.0 ug/mL [facility] Blood 10/07/2024 5:58 AM EDT 10/07/2024 6:16 AM EDT us Ryland Shah MD LAB BLOOD ORDERABLES Final Resu lt [address] [address] * (ABNORMAL) Urinalysis w/reflex Urine Culture (10/07/2024 2:07 AM EDT) COLOR Yellow Yellow [facility] CLARITY HAZY [facility] GLUCOSE Negative Negative [facility] BILI Negative Negative [facility] KETONES 2+(A) Negative [facility] SPECIFIC GRAVITY 1.025 1.005 - 1.030 [facility] BLOOD Negative Negative [facility] PH 6.0 5.0 - 8.0 [facility] Protein-UA Negative Negative [facility] NITRITE Negative Negative [facility] Leukocyte esterase, ur Negative Negative [facility] Urine (Urine) 10/07/2024 2:0 7 AM EDT 10/07/2024 2:11 AM EDT us Bryant Ford Ochoa DO URINE ORDERABLES Final Result Performing Organization Address [facility] Co de Phone Number [address] [address] * Lactate (10/07/2024 1:26 AM EDT) Only the most recent of2 resultswithin the time period is included. LACTATE 1.29 0.50 - 2.20 mmol/L [facility] Blood 10/07/2024 1:26 AM EDT 10/07/2024 1:30 AM EDT us Bryant Ochoa DO LAB BLOOD ORDERABLES Final Re sult Performing Organization Address [facility] Co de Phone Number [address] [address] * XR Chest Portable (10/06/2024 11:44 PM EDT) Anatomical Region Laterality Modality Chest Computed Radiogr aphy 10/07/2024 12:0 0 AM EDT Impressions 10/07/2024 12:04 AM EDT Left basilar patchy airspace opacities, may represent any combination of atelectasis, pneumonia or aspiration. Narrative 10/07/2024 12:04 AM EDT XR CHEST PORTABLE Referring clinician's provided indication for this examination in Epic: Fever COMPARISON: XR CHEST PORTABLE FINDINGS: Devices/Tubes/Lines: None. Lungs: Left basilar patchy airspace opacities. Pleura: No pleural effusion or pneumothorax. Heart/Mediastinum: Normal heart and mediastinum. Bones/Soft Tissues: No acute abnormality. Fusion hardware seen in the lower cervical spine. Status post T12 vertebral augmentation. Procedure Note Kunal Graf MD - 10/07/2024 XR CHEST PORTABLE Referring clinician's provided indication for this examination in Epic:Fever COMPARISON: XR CHEST PORTABLE FINDINGS: Devices/Tubes/Lines: None. Lungs: Left basilar patchy airspace opacities. Pleura: No pleural effusion or pneumothorax. Heart/Mediastinum: Normal heart and mediastinum. Bones/Soft Tissues: No acute abnormality. Fusion hardware seen in thelower cervical spine. Status post T12 vertebral augmentation. IMPRESSION: Left basilar patchy airspace opacities, may represent any combination ofatelectasis, pneumonia or aspiration. us Bryant Ochoa DO IMG XR CHEST Final Result * (ABNORMAL) LFTs (hepatic panel) (10/06/2024 11:33 PM EDT) ALKALINE PHOSPHATASE 53 39 - 117 U/L [facility] TOTAL BILIRUBIN 0.5 0.0 - 1.2 mg/dL [facility] DIRECT BILIRUBIN 0.2 0.0 - 0.2 mg/dL [facility] Bilirubin (Indirect) 0.3 0 - 1.5 mg/dL [facility] AST 13 0 - 37 U/L [facility] ALT 6 0 - 40 U/L [facility] TOTAL PROTEIN 6.1(L) 6.5 - 8.0 g/dL [facility] ALBUMIN 3.8(L) 3.9 - 4.8 g/dL [facility] GLOBULIN 2.3 1 - 4.8 g/dL [facility] A/G Ratio 1.65 1.00 - 4.80 RATIO [facility] Blood 10/06/2024 11:3 3 PM EDT 10/06/2024 11:41 PM EDT us Bryant Ochoa DO LAB BLOOD ORDERABLES Final Re sult [facility] [address] [place] [address] * (ABNORMAL) Lipase (10/06/2024 11:33 PM EDT) LIPASE 14(L) 16 - 63 U/L [facility] Blood 10/06/2024 11:3 3 PM EDT 10/06/2024 11:41 PM EDT us Bryant Ochoa DO LAB BLOOD ORDERABLES Final Re sult Performing Organization Address [facility]/ZIP Co de Phone Number [address] [address] * ECG 12-LEAD (10/06/2024 11:24 PM EDT) Ventricular Rate EKG/MIN 98 BPM [facility] Atrial Rate 98 BPM [facility] NM Interval 146 ms [facility] QRS Duration 66 ms [facility] QT Interval 352 ms [facility] QTC Interval 449 ms [facility] P [place] 35 degrees [facility] R Wave [place] 37 degrees [facility] T Wave [place] 81 degrees [facility] 10/06/2024 11:2 4 PM EDT 10/07/2024 8:32 AM EDT Narrative [facility] - 10/07/2024 8:32 AM EDT Normal sinus rhythm Nonspecific ST and T wave abnormality Abnormal ECG When compared with ECG of 19-Jun-2023 13:22, Nonspecific T wave abnormality now evident in Lateral leads Confirmed by Roberto SPENCE ([id number]) on 10/07/2024 8:32:46 AM us Bryant Ochoa DO ECG ORDERABLES Final Result Performing Organization Address [facility]/ZIP Co de Phone Number [email or web address] * TSH (08/05/2024 12:08 PM EDT) TSH 0.99 0.27 - 4.20 uIU/mL [facility] Blood 08/05/2024 12:0 8 PM EDT 08/05/2024 12:15 PM EDT us Holly Castañeda MD LAB BLOOD ORDERABLES Final Resu lt Performing Organization Address City/State/[facility] Co de Phone Number [address] [address] * Microalbumin/creatinine ratio, random urine (04/05/2024 9:29 AM EST) URINE MICROALBUMIN <1.2 0 - 2.3 mg/dL [facility] URINE CREATININE 133 mg/dL [facility]ICE PRESIDENT PROCESS [facility] MICROALB/CRE RATIO NOT CALCULATED 0 - 20 mg/g Cre [facility] Comment:due to Microalbumin <1.2 Urine (Urine) 04/05/2024 9:2 9 AM EST 04/05/2024 9:32 AM EST us Bryce Plunkett MD URINE ORDERABLES Final Result Performing Organization Address [facility] Co de Phone Number [address] [address] * BI MAMMOGRAM SCREENING WITH TOMOSYNTHESIS WITH CAD (BILATERAL) (02/28/2024 11:15 AM EST) Anatomical Region Laterality Modality Breast Left, Breast Right, Breast Bilateral Bila teral Mammography 02/28/2024 1:39 PM EST Impressions 02/28/2024 1:41 PM EST No mammographic evidence of malignancy in either breast. Annual screening mammography is recommended. BI-RADS 1 NEGATIVE The patient will be notified of the results and recommendations. Narrative 02/28/2024 1:41 PM EST BI MAMMOGRAM SCREENING WITH TOMOSYNTHESIS WITH CAD (BILATERAL) Additional patient information: Screening. COMPARISON: Comparison is made with relevant prior imaging. Breast composition: The breast tissue is heterogeneously dense which may obscure small masses. FINDINGS: No abnormal masses, suspicious calcifications, or other significant findings are identified mammographically in either breast. Procedure Note Rosaline Christie MD - 02/28/2024 BI MAMMOGRAM SCREENING WITH TOMOSYNTHESIS WITH CAD (BILATERAL) Additional patient information: Screening. COMPARISON: Comparison is made with relevant prior imaging. Breast composition: The breast tissue is heterogeneously dense which mayobscure small masses. FINDINGS: No abnormal masses, suspicious calcifications, or other significantfindings are identified mammographically in either breast. IMPRESSION: No mammographic evidence of malignancy in either breast. Annual screening mammography is recommended. BI-RADS 1 NEGATIVE The patient will be notified of the results and recommendations. Bryce Plunkett MD IMG MG EXAMS Final Result * DIABETES EYE EXAM FOR RESULT ENTRY ONLY (10/21/2021) Historical Provider [facility] Edited Result - Final * ENDOSCOPY, COLON (03/19/2020 8:58 AM EST) Narrative Transcriptions Genaro Perry MD - 03/19/2020 8:58 AM EST Patient Name: Endy Evangelista Attending MD:: GENARO PERRY MD Procedure Date: 03/19/2020 8:58 AM Date of : 1955 Age: 64 Admit Type: Outpatient Gender: Female Room: [place] [address] Referring MD: AB BLANCO MD Exam Type: Colonoscopy Indications: Screening for colorectal malignant neoplasm, Last colonoscopy: February 2010 Medications: Propofol per Anesthesia Procedure: Informed consent was obtained from the patient after discussion of the indications, limitations, alternatives, benefits, and risks of the procedure. Risks specifically discussed include but are not limited to medication reactions, missed lesions, bleeding, perforation, or the need for emergentsurgery. Throughout the procedure, the patient's bloodpressure, pulse, end-tidal CO2, and oxygen saturations were monitored continuously. The Olympus adult variable colonoscope [id number] #1was introduced through the anus and advanced to the terminal ileum, with identification of theappendiceal orifice and IC valve. The terminal ileum, ileocecal valve, appendiceal orifice, and rectum were photographed. The colonoscopy was performed without difficulty. The patient tolerated the procedurewell. The quality of the bowel preparation was good. The bowel preparation used was GoLYTELY via split dose instruction. Complications: No immediate complications. Estimated blood loss:None. Findings: The perianal and digital rectal examinations were normal. Pertinent negatives include no palpablerectal lesions. The retroflexed view of the distal rectum and anal verge was normal and showed no anal or rectal abnormalities. A small polyp was found in the ascending colon. The polyp was sessile. The polyp was removed with a cold snare. Resection and retrieval were complete. The terminal ileum appeared normal. Retroflexion in the right colon was performed. Impression: - The distal rectum and anal verge are normal on retroflexion view. - One small polyp in the ascending colon, removedwith a cold snare. Resected and retrieved. - The examined portion of the ileum was normal. Recommendation: - If the pathology report reveals adenomatoustissue, then repeat the colonoscopy for surveillance in 5years. - If the pathology report reveals no adenomatous tissue, then repeat the colonoscopy for screening purposes in 10 years. GENARO PERRY MD 03/19/2020 9:45:20 AM This report has been signed electronically. Number of Addenda: 0 Note Initiated On: 03/19/2020 8:58 AM Procedure Code(s): --- Professional --- 38291, Colonoscopy, flexible; with removal of tumor(s), polyp(s), or other lesion(s) by snare technique --- Technical --- 54690, Colonoscopy, flexible; with removal of tumor(s), polyp(s), or other lesion(s) by snare technique Diagnosis Code(s): --- Professional --- Z12.11, Encounter for screening for malignantneoplasm of colon D12.2, Benign neoplasm of ascending colon --- Technical --- Z12.11, Encounter for screening for malignantneoplasm of colon D12.2, Benign neoplasm of ascending colon CPT copyright 2018 [employer]. All rights reserved. The codes documented in this report are preliminary and upon blade balancer reviewmay be revised to meet current compliance requirements. Procedure Date: 03/19/2020 8:58:[address] [place] [id number] Ab Blanco MD GI PROCEDURE ORDERABLES Final Result * Hepatitis C antibody, qualitative (04/22/2019 3:24 PM EST) HCV NON-REACTIV E NON-REACTI VE [facility] Blood 04/22/2019 3:24 PM EST 04/22/2019 4:09 PM EST Ab Blanco MD LAB BLOOD ORDERABLES Fi nal Result [address] [address] * PAP SMEAR FOR RESULT ENTRY ONLY (09/08/2006 11:50 AM EDT) Pap smear 5 YEARS Historical Provider HEALTH MAINTENANCE Final Result from Last 3 Months or Most Recently Relevant to Health Maintenance Insurance MEDICARE PART A & B [employer] MEDEX SUPPLEMENT MEDICARE PART A & B [employer] MEDEX SUPPLEMENT MEDICARE PART A & B [employer] MEDEX SUPPLEMENT MEDICARE PART A & B [employer] MEDEX SUPPLEMENT MEDICARE PART A & B [employer] 3 SUPPLEMENT MEDICARE PART A & B [employer] 3 SUPPLEMENT MEDICARE PART A & B [employer] MEDEX SUPPLEMENT MEDICARE PART A & B [employer] MEDEX SUPPLEMENT MEDICARE PART A & B [employer] MEDEX SUPPLEMENT Advance Directives For more information, please contact: [phone] (9AM - 5PM [facility], Monday-Monday) Documents on File Type Date Recorded 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 Agrees to intubation in the event respiratory status worsens. * Full Code (Confirmed) Date Activated Date Inactivated Comments 05/20/2018 10:41 PM 05/22/2018 4:51 PM Question Answer Comments Code Status Confirmed With: Patient * Full Code (Presumed) Date Activated Date Inactivated Comments 07/11/2017 2:47 PM 07/12/2017 1:48 PM Healthcare Agents on File Name Relationship Healthcare Agent Relationship Communication Brad Evangelista Spouse .Primary Health Care Agent (Proxy form on file) Care Teams Animal Shelter Clerk Relationship Specialty Start Date End Date Bryce Plunkett MD [address] [place] [id number] PCP - General Family Medicine 01/09/23 Reina Price, RN [address] [place] [id number] iCMP Forensic Pathologist 05/06/20 Bryce Plunkett MD [address] [place] [id number] Insurance Assigned Provider 07/15/23 Additional Source Comments The information contained in this document represents components of the legal health record. It is not the complete legal health record.[facility]
== END 2024-11-12 11:23 | disposition home or self-care (01) ==
LOC: HO.HSM 10:51
PROVIDERS: PCP Nurse Practitioner Family; Referring Provider Nurse Practitioner Family; Visit Provider Registered Nurse
DX: G40.909 Epilepsy, unspecified, not intractable, without status epilepticus (principal); R25.1 Tremor, unspecified; M54.16 Radiculopathy, lumbar region; G31.84 Mild cognitive impairment of uncertain or unknown etiology
CPT/HCPCS: 99214

== ENCOUNTER 2024-11-12 10:50 | Outpatient (REF) | payer MEDICARE, SELFPAY | END 2024-11-12 10:51 | disposition home or self-care (01) | LOC: HO.LAB 10:50 | PROVIDERS: PCP Nurse Practitioner Family; Referring Provider Nurse Practitioner Family; Visit Provider Registered Nurse | DX: G40.909 Epilepsy, unspecified, not intractable, without status epilepticus (principal); G31.84 Mild cognitive impairment of uncertain or unknown etiology; M54.16 Radiculopathy, lumbar region; R25.1 Tremor, unspecified; Z79.899 Other long term (current) drug therapy; Z79.4 Long term (current) use of insulin | CPT/HCPCS: 36415; 80164; 99212 ==